=== PATIENT | male | born 1945 | race Caucasian/White ===

== ENCOUNTER 2020-06-07 15:32 | Outpatient (CLI) | payer MEDICARE, OTHER, SELFPAY ==
--- NOTE | 2020-06-07 15:42 | CT_ITS ---
WS: [id number] CT CHEST TECHNIQUE: Noncontrast CT of the chest with coronal and sagittal reformatted images. CLINICAL INFORMATION: HEMOPTYSIS, LESTER FUNGUS BALL, PULMONARY NODULES COMPARISON: CT chest 12 9,019 DLP: 894.[address] scans at [facility] use at least one of these dose optimization techniques: automat ed exposure control; mA and/or kV adjustment per patient size (includes targeted exams where dose is matched to clinical indication); or iterative reconstruction. FINDINGS: Again seen is the cavitary mass in left upper lobe today measuring 5.6 x 2.8 cm with internal soft ti ssue mass measuring 2.1 x 3.4 cm slightly increased from previous but otherwise not significantly wing nged. Associated pleural thickening. 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 Small right pleural effusion. No other significant changes. Mild chronic emphysematous changes. No mediastinal or hilar lymphadenop athy. Stable exophytic substernal thyroid nodule measuring 3.2 x 2.7 cm. Coronary calcification. Adrenal glands are normal. Cholecystectomy clips. A few small cysts in left hepatic lobe. Hypertrophi c changes thoracic spine. CT/CT chest wo con [id number] IMPRESSION: 1. 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 Overall the cavi tary mass measures 5.6 x 2.8 cm slightly increased in size from previous. Stabl e pleural thickening 2. No mediastinal or hilar lymphadenopathy. 3. Improved round atelectasis/fibrosis right lower lobe. 4. Substernal right thyroid nodule unchanged 5. Prior cholecystectomy. 6. Stable hepatic cysts.
== END 2020-06-07 15:33 | disposition home or self-care (01) ==
LOC: RADWPI 15:37
PROVIDERS: Family Provider Family Medicine; PCP Family Medicine; Visit Provider Internal Medicine Pulmonary Disease
DX: R04.2 Hemoptysis (principal); R91.1 Solitary pulmonary nodule; J98.11 Atelectasis; J84.10 Pulmonary fibrosis, unspecified; K76.89 Other specified diseases of liver
CPT/HCPCS: 71250

== ENCOUNTER 2020-07-06 20:14 | Inpatient (IN) | payer MEDICARE, OTHER, SELFPAY ==
[2020-07-06 20:14] VITALS: PULSE 96
[2020-07-06 20:21] VITALS: BP 134/63; PULSE 81; RESP 18; TEMP 36.9; O2SAT 98; BMI 29.8
--- NOTE | 2020-07-06 20:35 | XRR_ITS ---
PROCEDURE INFORMATION: Exam: XR Right Hip with Pelvis when Performed Exam date and time: 07/06/2020 9:11 PM Age: 74 years old Clinical indication: Hip pain; Right hip; Additional info: Fall, right hip pain. TECHNIQUE: Imaging protocol: XR Right hip with pelvis when performed. Views: 1 view. COMPARISON: CR Pelvis AP 1 or 2 views* [id number] 09/14/2017 12:52 PM FINDINGS: Bones/joints: Potential incomplete subcapital fracture right hip. Osteopenia. Soft tissues: Unremarkable. XR/XR hip RT 2-3V wo/w pel* [id number] IMPRESSION: Potential incomplete subcapital fracture right hip.
--- NOTE | 2020-07-06 21:38 | CTR_ITS ---
PROCEDURE INFORMATION: Exam: CT Pelvis Without Contrast; Skeletal Exam date and time: 07/06/2020 9:53 PM Age: 74 years old Clinical indication: Injury or trauma; Fall; Initial encounter; Blunt trauma (contusions or hematomas); Right; Hip; Additional info: Right hip pain following a fall TECHNIQUE: Imaging protocol: Computed tomography images of the pelvis without contrast. Exam focused on the skeletal structures. Radiation optimization: All CT scans at this facility use at least one of these dose optimization techniques: automated exposure control; mA and/or kV adjustment per patient size (includes targeted exams where dose is matched to clinical indication); or iterative reconstruction. COMPARISON: CR XR hip RT 2-3V wo/w pel* [id number] 07/06/2020 8:54 PM RADIATION DOSE METRICS: Total DLP (mGy-cm): 390.7 FINDINGS: Retroperitoneal space: Intraperitoneal and retroperitoneal structures within the field of view without visible evidence of active pathologic process. Bones/joints: Examination confirms the plain film findings of an incomplete subcapital stress fracture of the right hip. The fracture line extends through approximately 50% of the surgical neck beginning at the cephalad curve of the surgical neck extending 18 mm. No other visible fracture within the field of view. Chronic sacroiliitis. Degenerative disease degenerative disc disease of visualized lumbosacral spine. Small right hip joint effusion. Soft tissues: No visible significant soft tissue contusion or findings of soft tissue seroma/hematoma. CT/CT pelvis wo con [id number] IMPRESSION: 1. Examination confirms the plain film findings of an incomplete subcapital stress fracture of the right hip. 2. The fracture line extends through approximately 50% of the surgical neck beginning at the cephalad curve of the surgical neck extending 18 mm. 3. Small right hip joint effusion. Radiation Dose CTDIVOL = (mGy): DLP = 390.7 (mGy-cm)
--- NOTE | 2020-07-06 21:52 | ED_ITS ---
HPI - Extremity Problem General: Chief complaint: Extremity Injury, Lower Stated complaint: fall/ possible broken rt hip Time Seen by Provider: 07/06/20 20:21 Source: patient Mode of arrival: EMS Limitations: no limitations History of Present Illness: HPI Narrative: Patient was started on a medication for prostate issues and he took the first dose today. When he got up from a sitting position he got dizzy. He still proceeded to try to walk and he fell, landing on his right hip. He was initially able to get up but when he tried to bear weight on the right hip he had excruciating pain that became unbearable shortly afterwards. He has no other injuries. He has no other pain other than in the right hip region. He was given a dose of intravenous Dilaudid in the ambulance and he is currently pain-free MD Complaint: extremity pain Onset (ago): hour(s) (4) Pain Consistency: constant Location: right Severity scale (1-10): 10 Quality: sharp Radiation: none Relieving factors: other (IV pain medication given in the ambulance) Exacerbating factors: weight bearing Associated symptoms: Reports arthralgias; Deny chest pain, fever(s), myalgias, rash or short of breath Review of Systems General: Reports: 10 or more systems reviewed and unremarkable except in HPI and below Const: Denies: fever(s) Eyes: Denies: change in vision or blurry vision ENMT: Denies: throat pain, enlarged tonsils, odynophagia, hoarseness, mouth pain or swelling of lips/tongue Card: Denies: chest pain Resp: Denies: dyspnea, productive cough or non-productive cough GI: Denies: abdominal pain, nausea or vomiting : Denies: flank pain, dysuria, urinary frequency, urinary urgency or urinary hesitancy Musc: Reports: extremity pain and joint pain; Denies: neck pain, back pain or extremity swelling Skin/Breast: Denies: rash Neuro: Denies: headache(s), numbness in extremities or weakness in extremities Endo: Denies: polyuria, polydipsia or tired all the time Physical Exam Const: COMMON NORMALS: no acute distress, average body habitus, patient oriented x3, no limitations, healthy appearing, alert and well nourished HENMT: COMMON NORMALS: normocephalic, atraumatic and moist oral mucous membranes HEAD & SCALP: normocephalic and atraumatic Neck/C-Spine: COMMON NORMALS: full ROM, supple, no meningeal signs, no JVD and No carotid bruits Chest: COMMONS NORMALS: normal inspection of the chest and normal palpation of entire chest wall Resp: COMMON NORMALS: normal respiratory effort, No retractions, No use of accessory muscles, clear to auscultation bilaterally and percussion normal AUSCULTATION: clear to auscultation bilaterally PERCUSSION: percussion normal Cardio: COMMON NORMALS: no JVD, regular rate, regular rhythm, S1 normal heart sound present, S2 normal heart sound present, No gallops present (Cardio), No clicks present (Cardio), No murmurs present (Cardio), No rub (Cardio) and Peripheral pulses 2+ throughout RATE: regular rate RHYTHM: regular rhythm HEART SOUNDS: S1 normal heart sound present and S2 normal heart sound present PERIPHERAL PULSES: Peripheral pulses 2+ throughout GI: COMMON NORMALS: Normal to inspection, nondistended, normoactive bowel sounds present, Soft to palpation, non-tender, No hepatosplenomegaly present, no masses and no bruits PALPATION: Yes Soft to palpation and Yes No hepatosplenomegaly present Extremity: COMMON NORMALS: normal to inspection, full ROM, capillary refill normal, no calf tenderness and no pedal edema RIGHT LOWER EXTREMITY: Yes hip joint Right hip: Yes palpation (tender) and Yes ROM (reduced rom) Neuro: COMMON NORMALS: patient oriented x3 SENSORIUM/ORIENTATION: Yes alert MENINGEAL SIGNS: Yes no meningeal signs Skin: COMMON NORMALS: no rashes or lesions noted, no wounds, turgor normal, no jaundice, no petechiae and no mottling GENERAL SKIN EXAM: no rashes or lesions noted and turgor normal Course Consultations: Consultation #1: Discussed with Dr. Ladd, orthopedic surgeon. Patient should be admitted to the hospitalist service and he will take him to the OR tomorrow morning. Time: 23:18 Consultation #2: Discussed with Dr. Reid, hospitalist. He kindly accepted the patient to his service. Time: 23:22 Vital Signs: Vital signs: Vital Signs Temperature 98.5 F 07/06/20 20:21 Pulse Rate 86 07/06/20 21:56 Respiratory Rate 20 H 07/06/20 21:56 Blood Pressure 139/59 07/06/20 21:56 Pulse Oximetry 97 07/06/20 21:56 MDM - Extremity (Nontraumatic) MDM Narrative: Medical decision making narrative: 74-year-old male fell and sustained a right hip fracture. He is admitted to the hospital for an ORIF tomorrow. Medical Records: Attestation: I reviewed the patient's medical records. Lab Data: Attestation: I reviewed the patient's lab results. Labs: Lab Results 07/06/20 07/06/20 07/06/20 Range/Units 20:15 20:15 21:00 WBC 9.5 (4.0-10.0) 10^3/ uL RBC 3.67 L (4.1-5.3) 10^6/u L Hgb 11.2 L (11.7-16.6) g/dL Hct 34.1 L (42.0-52.0) % MCV 92.9 (80-94) fL MCH 30.5 (28.0-34.0) pg MCHC 32.8 (30.0-36.0) g/dL RDW 12.9 (12.1-15.1) % Plt Count 100 L (130-400) 10^3/c mm MPV 11.4 H (7.4-10.4) fL Neut % (Auto) 76.8 % Lymph % (Auto) 14.3 % [place] % (Auto) 7.2 % Eos % (Auto) 0.9 % Baso % (Auto) 0.3 % Neut # (Auto) 7.28 (1.8-7.7) 10^3/u L Lymph # (Auto) 1.4 (0.8-4.8) 10^3/u L [place] # (Auto) 0.7 (0.2-0.9) 10^3/u L Eos # (Auto) 0.1 (0.0-0.8) 10^3/u L Baso # (Auto) 0.0 (0.0-0.1) 10^3/u L Nucleated RBC % (a uto) 0 % Nucleated RBCs # 0.0 /100WBC Sodium 135 L (136-145) mmol/L Potassium 4.5 (3.5-5.1) mmol/L Chloride 100 (98-107) mmol/L Carbon Dioxide 21 L (22-29) mmol/L Anion Gap 18.5 (5-19) BUN 42 H (8-23) mg/dL Creatinine 3.3 H (0.7-1.2) mg/dL GFR Calculation Not Reportable Glucose 161 H (65-115) mg/dL Calculated Osmolal ity 281 L (285-295) mOsm/k g Calcium 9.8 (8.5-10.5) mg/dL Total Bilirubin 0.5 (0.15-1.2) mg/dL AST 15 (0-40) U/L ALT 11 (0-41) U/L Alkaline Phosphata se 80 (40-130) IU/L Total Protein 7.9 (6.6-8.7) g/dL Albumin 4.2 (3.5-5.2) g/dL Globulin 3.7 (1.3-4.6) g/dL Urine Color Yellow (Yellow) Urine Appearance Clear (CLEAR) Urine pH 5 (5-7) Ur Specific Gravit y 1.010 (1.005-1.030) Urine Protein Neg (Negative) Urine Glucose (UA) Norm (Normal) Urine Ketones Negative (Negative) Urine Blood Neg (Negative) Urine Nitrate Negative (Negative) Urine Bilirubin Neg (NEGATIVE) Urine Urobilinogen Norm (Negative) mg/dL Ur Leukocyte Rufina ase Negative (Negative) Imaging Data^: Xray Ortho: Radiologist's impression: [address] [address] XRay Report Signed Patient: Marianela Evangelista #: [id number] : 4At#:[id number] Age/Sex: 74 / MADM Date: 07/06/20 Loc: ERRoom/Bed: Attending Dr: Ordering Provider/Ordering MD: Neal Ulrich MD, [facility] [place] Date of Service: 07/06/20 Procedure(s): XR hip RT 2-3V wo/w pel* [id number] Accession Number(s): [id number] Report Number: [id number] PROCEDURE INFORMATION: Exam: XR Right Hip with Pelvis when Performed Exam date and time: 07/06/2020 9:11 PM Age: 74 years old Clinical indication: Hip pain; Right hip; Additional info: Fall, right hip pain. TECHNIQUE: Imaging protocol: XR Right hip with pelvis when performed. Views: 1 view. COMPARISON: CR Pelvis AP 1 or 2 views* [id number] 09/14/2017 12:52 PM FINDINGS: Bones/joints: Potential incomplete subcapital fracture right hip. Osteopenia. Soft tissues: Unremarkable. XR/XR hip RT 2-3V wo/w pel* [id number] IMPRESSION: Potential incomplete subcapital fracture right hip. Dictated By:Joao Sotelo Signed By:Maria Guadalupe Sotelo Date/Time:07/06/202146 DD/ 45 CT Abd/Pel: Radiologist's impression: [place] [address] CT Scan Report Signed Patient: Marianela Evangelista #: [id number] : 4Acct#:[id number] Age/Sex: 74 / MADM Date: 07/06/20 Loc: ERRoom/Bed: Attending Dr: Ordering Provider/Ordering MD: Neal Ulrich MD, [facility] [place] Date of Service: 07/06/20 Procedure(s): CT pelvis wo con [id number] Accession Number(s): [id number] Report Number: [id number] PROCEDURE INFORMATION: Exam: CT Pelvis Without Contrast; Skeletal Exam date and time: 07/06/2020 9:53 PM Age: 74 years old Clinical indication: Injury or trauma; Fall; Initial encounter; Blunt trauma (contusions or hematomas); Right; Hip; Additional info: Right hip pain following a fall TECHNIQUE: Imaging protocol: Computed tomography images of the pelvis without contrast. Exam focused on the skeletal structures. Radiation optimization: All CT scans at this facility use at least one of these dose optimization techniques: automated exposure control; mA and/or kV adjustment per patient size (includes targeted exams where dose is matched to clinical indication); or iterative reconstruction. COMPARISON: CR XR hip RT 2-3V wo/w pel* [id number] 07/06/2020 8:54 PM RADIATION DOSE METRICS: Total DLP (mGy-cm): 390.7 FINDINGS: Retroperitoneal space: Intraperitoneal and retroperitoneal structures within the field of view without visible evidence of active pathologic process. Bones/joints: Examination confirms the plain film findings of an incomplete subcapital stress fracture of the right hip. The fracture line extends through approximately 50% of the surgical neck beginning at the cephalad curve of the surgical neck extending 18 mm. No other visible fracture within the field of view. Chronic sacroiliitis. Degenerative disease degenerative disc disease of visualized lumbosacral spine. Small right hip joint effusion. Soft tissues: No visible significant soft tissue contusion or findings of soft tissue seroma/hematoma. CT/CT pelvis con [id number] IMPRESSION: 1. Examination confirms the plain film findings of an incomplete subcapital stress fracture of the right hip. 2. The fracture line extends through approximately 50% of the surgical neck beginning at the cephalad curve of the surgical neck extending 18 mm. 3. Small right hip joint effusion. Radiation Dose CTDIVOL = (mGy): DLP = 390.7 (mGy-cm) Dictated By:Joao Sotelo Signed By:Joao SoteloSignbettina Date/Time:07/06/202253 DD/ 52 Discharge Plan Discharge Patient Disposition: Admitted As Inpatient Clinical Impression: Fracture of hip Condition: Stable Referrals: Jt Rey Jr, MD [Primary Care Provider] - Coding Level of Care Code ED Pediatric Neuropsychologist for Flash Barth
[2020-07-06 21:56] VITALS: BP 139/59; PULSE 86; RESP 20; O2SAT 97
--- NOTE | 2020-07-06 21:57 | PC.NURSE ---
during pt rounding, pt states he is unable to urinate due to recent dx of enlarged prostate, requesting to be straight cath. vo obtained from Dr figueroa to drain bladder with catheter. 350cc of urine drained from straight cath
--- NOTE | 2020-07-06 23:15 | ECG_ITS ---
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 Measurements Intervals [place] Rate: 73 P: 48 TX: 166 QRS: 256 QRSD: 162 T: 65 QT: 418 QTc: 463 Interpretive Statements SINUS RHYTHM WITH SINUS ARRHYTHMIA RIGHT AXIS DEVIATION [QRS AXIS > 100] RIGHT BUNDLE BRANCH BLOCK [120+ ms QRS DURATION, UPRIGHT V1, 40+ ms S IN I/aVL/V4/V5/V6] Compared to ECG 10/05/2017 11:03:02 No significant changes Electronically Signed On 07-07-2020 13:18:27 CDT by Allison Taylor M.D. [email or web address]
--- NOTE | 2020-07-06 23:16 | XRR_ITS ---
PROCEDURE INFORMATION: Exam: XR Chest, 1 View Exam date and time: 07/07/2020 12:10 AM Age: 74 years old Clinical indication: Screening exam; Pre-operative exam; Other: Pre op hip; Prior surgery; Surgery date: 6+ months; Additional info: Preop TECHNIQUE: Imaging protocol: XR of the chest Views: 1 view. COMPARISON: CT chest wo con [id number] 06/07/2020 3:49 PM FINDINGS: Tubes, catheters and devices: Pacemaker. Lungs: Again note of a left upper lobe cavitary structure noted on the CT examination of 06/07/2020. Please review that report. No other evidence of active interstitial or alveolar airspace disease. Evidence of antecedent granulomatous disease to include calcified hilar complexes. Pleural space: Scant right pleural effusion. Heart/Mediastinum: Cardiac structures and configuration stable with arteriosclerosis. Bones/joints: Unremarkable. XR/XR chest 1V portable [id number] IMPRESSION: No visible evidence of acute cardiopulmonary process.
[2020-07-06 23:37] LABS: Add Urine Microscopic? NO
[2020-07-06 23:39] LABS: Basophils % 0.3 %; Eosinophils # 0.1 10^3/uL (0.0-0.8); Eosinophils % 0.9 %; Hematocrit 34.1 % (42.0-52.0); Hemoglobin 11.2 g/dL (11.7-16.6); Lymphocytes # 1.4 10^3/uL (0.8-4.8); Lymphocytes % 14.3 %; Mean Corpuscular HGB Conc 32.8 g/dL (30.0-36.0); Mean Corpuscular Hemoglobin 30.5 pg (28.0-34.0); Mean Corpuscular Volume 92.9 fL (80-94); Mean Platelet Volume 11.4 fL (7.4-10.4); Monocytes # 0.7 10^3/uL (0.2-0.9); Monocytes % 7.2 %; Neutrophils # 7.28 10^3/uL (1.8-7.7); Neutrophils % 76.8 %; Nucleated Red Blood Cells % 0 %; Platelet Count 100 10^3/cmm (130-400); Red Blood Count 3.67 10^6/uL (4.1-5.3); Red Cell Distribution Width 12.9 % (12.1-15.1); White Blood Count 9.5 10^3/uL (4.0-10.0)
[2020-07-06 23:41] LABS: Bilirubin Urine Neg (NEGATIVE); Blood Urine Neg (Negative); Glucose Urine UA Norm (Normal); Ketones Urine Negative (Negative); Leukocyte Esterase Urine Negative (Negative); Nitrate Urine Negative (Negative); Protein Urine Neg (Negative); Urine Appearance Clear (CLEAR); Urine Color Yellow (Yellow); Urobilinogen Urine Norm (Negative); pH Urine 5 (5-7)
--- NOTE | 2020-07-06 23:49 | P.HP_ITS ---
Providers/Chief Complaint Primary Care Provider: Jt Rey Jr, MD Chief Complaint: fall/ possible broken rt hip History of Present Illness Timoteo Evangelista is a 74 year old male who presents to the emergency department with history of a fall around 2:30 PM on July 06. He reports he was lightheaded when he got up, and fell. He wonders if it could be the new medication that he started, Flomax for some prostate issues. However, it was 12 hours after taking the Flomax that the fall occurred. He denies any loss of consciousness, or any other injuries other than to his right hip. He has having some right groin pain, radiating to his knee. He denies any headache, nausea or vomiting. He denies any illness recently and has not been sick with a cough. He reports no personal history of COVID, or contact with anybody with COVID. He denies any difficulty with anesthesia, or bleeding disorders. 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 Garcia and infectious disease physician. He recently underwent a bronchoscopy for this and is awaiting his biopsy results. He had a COVID screening test less than 1 week ago that was negative. Review of Systems General: Reports: 10 or more systems reviewed and unremarkable except in HPI and below Const: Denies: fever(s) or chills Eyes: Denies: change in vision ENMT: Denies: throat pain Card: Denies: chest pain Resp: Denies: dyspnea GI: Denies: abdominal pain : Denies: flank pain Musc: Reports: extremity pain; Denies: neck pain Skin/Breast: Denies: rash Neuro: Denies: headache(s) Psych: Denies: anxiety Endo: Denies: polyuria [place]/Lymph: Denies: easy bruising All/Imm: Denies: urticaria Medications/Allergies Allergies Allergy/AdvReac Type Severity Reaction Status Date / Time Penicillins Allergy Intermediate ALGY-Hives Verified 07/06/20 20:31 fentanyl Allergy ADR-Agitate Verified 07/06/20 20:31 d sulfamethoxazole Allergy ALGY-Hives Verified 07/06/20 20:31 [From Bactrim] trimethoprim [From Bactrim] Allergy ALGY-Hives Verified 07/06/20 20:31 PFSH Acute PFSH: Medical History (Updated 07/07/20 @ 01:01 by Xaiver Reid MD) Chronic kidney disease, stage III (moderate) Depression History of trauma Secondary to crush injury by horse where he required pacemaker, appendectomy, colostomy, dialysis 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 Family History (Updated 07/07/20 @ 00:56 by Xavier Reid MD) Other CAD (coronary artery disease) Social History (Updated 07/07/20 @ 00:56 by Xavier Reid MD) Smoking and tobacco status: former smoker Alcohol intake: never Vitals/I&O/Wt Last Vital Signs Temp 98.5 F 07/06/20 20:21 Pulse 86 07/06/20 21:56 Resp 20 H 07/06/20 21:56 BP 139/59 07/06/20 21:56 Pulse Ox 97 07/06/20 21:56 Weight last 48 hrs Weight 99.79 kg Physical Exam Narrative: EXAM NARRATIVE: General exam is a white male, no apparent distress, conversant and pleasant HEENT: Pupils equally round. Oropharynx clear. Neck is supple no lymphadenopathy or thyromegaly Cardiovascular regular rate and rhythm without murmur, no S3 or S4 Lungs clear no wheezing or crackles Abdomen is soft nontender with positive bowel sounds. No obvious organomegaly was deferred Extremities no cyanosis clubbing or edema. Cap refill brisk. Pain with any movement of his right lower extremity. Skin no rash Neuro no focal deficits. Data : 07/06/20 20:15 07/06/20 20:15 Other data: LFTs normal. Urinalysis negative Pelvis CT fracture, 50% of the surgical neck of the right hip EKG demonstrates sinus rhythm, left axis deviation, right bundle branch block Chest x-ray left upper lobe mass, pacemaker A&P Assessment and plan (1) Fracture of hip: Pain control Bed rest Place [facility] Orthopedic consultation for definitive treatment Status: Acute Qualifiers: Encounter type: initial encounter Fracture type: closed Laterality: right Qualified Code(s): S72.001A - Fracture of unspecified part of neck of right femur, initial encounter for closed fracture (2) Lung mass: He has been evaluated by pulmonary. Cultures are pending according to patient. 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 Request records Status: Inactive (3) Thrombocytopenia: Chronicity unknown although platelet count was 85,000 October 2018. Repeat tomorrow Status: Acute (4) Dizziness: Patient reports this may be secondary to Flomax. However, he often gets dizzy upon rising quickly anyway. Telemetry Hold Flomax Status: Acute (5) Hyperglycemia: Check hemoglobin A1c Status: Acute Additional A&P Information Mild anemia. Recheck. Chronic kidney disease at least stage III. Hydrate. Avoid renal toxic medication. Repeat creatinine in the morning. History of depression. Continue Cymbalta. History of BPH. Holding Flomax currently. History of trauma with multiple procedures following this including pacemaker, dialysis for short while. Full code SCDs for DVT prophylaxis, surgery anticipated No direct contraindications to hip fracture repair. Attestations Medical Necessity Statement*: Will need greater than 2 midnight stay for definitive care and treatment of hip fracture. Time Spent in Patient Care: Greater than 35 minutes Coding Level of Care Code Acute Audit Machine Operator for Flash Barth Diagnoses Fracture of hip S72.001A Encounter type: initial encounter Fracture type: closed Laterality: right Lung mass R91.8 Thrombocytopenia D69.6 Dizziness R42 Hyperglycemia R73.9
[2020-07-06 23:53] LABS: Alanine Aminotransferase 11 U/L (0-41); Albumin Level 4.2 g/dL (3.5-5.2); Alkaline Phosphatase 80 IU/L (40-130); Anion Gap 18.5 (5-19); Aspartate Amino Transferase 15 U/L (0-40); Blood Urea Nitrogen 42 mg/dL (8-23); Calcium 9.8 mg/dL (8.5-10.5); Carbon Dioxide 21 mmol/L (22-29); Chloride 100 mmol/L (98-107); Globulin 3.7 g/dL (1.3-4.6); Glucose 161 mg/dL (65-115); Osmolality Calculated 281 mOsm/kg (285-295); Potassium 4.5 mmol/L (3.5-5.1); Sodium 135 mmol/L (136-145); Total Bilirubin 0.5 mg/dL (0.15-1.2); Total Protein 7.9 g/dL (6.6-8.7)
[2020-07-07] VITALS (12 sets, daily range): BP systolic 112–147; BP diastolic 64–80; PULSE 72–86; RESP 16–22; TEMP 36.4–36.9; O2SAT 96–99; BMI 29.8
[2020-07-07] MEDS: sodium chloride 0.9% 1,000 ML 75 ML IV ×2 (00:45→08:13)
[2020-07-07] MEDS: ondansetron 2 mg/ML SDV 2 mL 4 MG IVP (00:50)
[2020-07-07] MEDS: morphine 4 mg/mL SDV 1 mL 2 MG IVP ×5 (00:58→20:40)
[2020-07-07 01:23] LABS: Estmated Average Glucose 108; Hemoglobin A1C 5.4 % (4.0-6.0)
--- NOTE | 2020-07-07 03:12 | PC.NURSE ---
during 0100 rounding, pt states pain has returned to 4/10 without movement. Orders for pain meds obtained
[2020-07-07 05:37] LABS: Basophils % 0.3 %; Eosinophils # 0.1 10^3/uL (0.0-0.8); Eosinophils % 1.8 %; Hematocrit 30.2 % (42.0-52.0); Hemoglobin 9.8 g/dL (11.7-16.6); Lymphocytes # 1.2 10^3/uL (0.8-4.8); Lymphocytes % 20.2 %; Mean Corpuscular HGB Conc 32.5 g/dL (30.0-36.0); Mean Corpuscular Hemoglobin 30.6 pg (28.0-34.0); Mean Corpuscular Volume 94.4 fL (80-94); Mean Platelet Volume 9.6 fL (7.4-10.4); Monocytes # 0.6 10^3/uL (0.2-0.9); Monocytes % 9.6 %; Neutrophils # 4.16 10^3/uL (1.8-7.7); Neutrophils % 67.6 %; Nucleated Red Blood Cells % 0 %; Platelet Count 109 10^3/cmm (130-400); White Blood Count 6.2 10^3/uL (4.0-10.0)
[2020-07-07 05:56] LABS: Anion Gap 12.5 (5-19); Blood Urea Nitrogen 40 mg/dL (8-23); Calcium 9.1 mg/dL (8.5-10.5); Carbon Dioxide 24 mmol/L (22-29); Chloride 104 mmol/L (98-107); Glucose 144 mg/dL (65-115); Osmolality Calculated 282 mOsm/kg (285-295); Potassium 4.5 mmol/L (3.5-5.1); Sodium 136 mmol/L (136-145)
--- NOTE | 2020-07-07 08:00 | PC.NURSE ---
reported to Dr. Dewitt that pt ran 5-8 sec SVT. No new orders at this time.
--- NOTE | 2020-07-07 08:34 | PM.CONSULT ---
Providers/Reason For Consult Consulting Physican/Specialty*: Avila Ladd MD; orthopedic surgery Reason for Consult*: Right hip pain Attending Physician: Renate Mar MD Primary Care Provider: Jt Rey Jr, MD History of Present Illness History of Present Illness Timoteo Evangelista is a 74 year old male who presents with a history of a right pain that occurred after a fall yesterday afternoon. Patient alleges that he was light headed as he got up from a chair. He describes falling on his right hip with immediate pain. He describes pain in the groin rating down to his knee. He has been unable to bear weight. He is admitted to medicine for evaluation of the syncopal event and orthopedics is asked to consult for his hip. He denies any previous problems with his right hip. He describes history approximately 5 years ago of a crushing injury to his abdomen and pelvis when a horse landed on top of them. He denies any orthopedic injuries to his hips at that time but he underwent an extensive exploratory laparotomy and states he was for several years on dialysis as a result Meds/Allergies Home Medications and Allergies Home Medications Medication Instructions Recorded Confirmed Last Taken Type fluticasone propion-salmeterol INHALATION 07/07/20 07/06/20 12:00 History [Advair HFA] Allergies Allergy/AdvReac Type Severity Reaction Status Date / Time Penicillins Allergy Intermediate ALGY-Hives Verified 07/06/20 20:31 fentanyl Allergy ADR-Agitate Verified 07/06/20 20:31 d sulfamethoxazole Allergy ALGY-Hives Verified 07/06/20 20:31 [From Bactrim] trimethoprim [From Bactrim] Allergy ALGY-Hives Verified 07/06/20 20:31 Current Medications Current Medications Generic Name Dose Route Start Last Admin Trade Name Freq PRN Reason Stop Dose Admin Sodium Chloride 1,000 mls @ 75 mls/hr 07/06/20 23:45 07/07/20 08:13 Sodium Chloride 0.9% IV 75 mls/hr .[id number] ALEXUS Administration Morphine Sulfate 2 mg 07/06/20 23:45 07/07/20 05:11 Morphine IVP 2 mg Q4H PRN Administration PAIN Ondansetron HCl 4 mg 07/06/20 23:46 07/07/20 00:50 Zofran IVP 4 mg Q6H PRN Administration vomiting, or N/V if npo PFSH Acute PFSH: Medical History (Updated 07/07/20 @ 01:01 by Xavier Reid MD) Chronic kidney disease, stage III (moderate) Depression History of trauma Secondary to crush injury by horse where he required pacemaker, appendectomy, colostomy, dialysis 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 Family History (Updated 07/07/20 @ 00:56 by Xavier Reid MD) Other CAD (coronary artery disease) Social History (Updated 07/07/20 @ 00:56 by Xavier Reid MD) Smoking and tobacco status: former smoker Alcohol intake: never Vitals/I&O/Wt Last Vital Signs Temp 97.6 F 07/07/20 07:31 Pulse 84 07/07/20 07:40 Resp 16 07/07/20 07:40 BP 147/79 07/07/20 07:40 Pulse Ox 96 07/07/20 07:40 07/06/20 07/07/20 07/07/20 22:59 06:59 14:59 Intake Total 0 / 0 560 / 560 Output Total 400 / 400 Balance -400 / -400 560 / 560 Weight last 48 hrs Weight 220 lb Weight 220 lb Physical Exam Narrative: EXAM NARRATIVE: Patient is a pleasant male supine in bed in no apparent distress. He has exquisite pain with motion of his right hip there is no obvious deformity. He has a palpable right dorsalis pedis pulse. Will flex and extend his toes and his ankle without any motor deficits. His right lower extremity sensation is intact light touch. Urinary Catheter Management^: Aguilar: Cath Placed During This Visit: yes Reason for Continuing Indwelling Catheter: Accurate Measurement of Urinary Output in Critically Ill Patients Urinary Catheter Date of Insertion: 07/07/20 Urinary Catheter Time of Insertion: 02:00 Data Imaging^: Xray Ortho: I personally reviewed and interpreted this imaging study as follows: (AP and lateral radiographs of the right hip) My impression: There appears to be an irregularity in the superior lateral cortex of the femoral neck and some apparent cystic change. I certainly cannot see complete extension into the inferior femoral neck. An acute component of fracture cannot be completely excluded Radiologist's impression: The radiologist comments on a potential incomplete stress fracture of the femoral neck Other CT: My impression: There appears to be some lucency and cystic change in the superior femoral neck. The pattern is not typical of an acute fracture and I would agree it would be consistent with some type of chronic process. Possibly a stress fracture. This could be an atypical presentation of acute fracture. There really is not a large effusion of the hip on that CT scan to suggest an acute process Radiologist's impression: The radiologist reviews the CT scan and see the incomplete subcapital stress fracture of the right hip. She may comment on extension to approximately 50% of the surgical neck. A&P Assessment and plan (1) Fracture of hip: There appears to be some process within the hip. It is difficult for me to precisely determine fracture anatomy and plan surgery. I am not certain if the changes in the femoral neck are chronic in nature. Certainly the lack of effusion might suggest that. This very well could represent some other fracture pattern other than the femoral neck. I think our best choice at this point would proceed with MR imaging to better define the fracture pattern or I can properly plan stabilization if warranted. Allow the patient to eat. Will obtain an MRI of the hip. 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
--- NOTE | 2020-07-07 09:08 | PC.NURSE ---
Pt again going into SVT, shows no signs. Dr. Dewitt notified. awaiting results.
[2020-07-07] MEDS: duloxetine 30 mg Capsule PO (09:14)
--- NOTE | 2020-07-07 10:57 | P.PN_ITS ---
Subjective Subjective: Interval history: Chart reviewed, noted ortho evaluation, MRI ordered. Vital signs stable, has Aguilar catheter in place, had 400 mL urine output overnight, paced rhythm on ECG though looks almost like V.tach on telemetry, asymptomatic. Unable to get MRI because of pacemaker though pacemaker card provided by shows compatibility. updated at bedside. No surgical intervention for now per Dr. Ladd. Medications: Reviewed: Yes Medication Review Details: Active Medications Generic Name Dose Route Start Last Admin Trade Name Freq PRN Reason Stop Dose Admin Acetaminophen 650 mg 07/06/20 23:46 Tylenol PO Q6H PRN Mild/Mod Pain Or Temp >/= 101 Duloxetine HCl 30 mg 07/07/20 09:00 07/07/20 09:14 Cymbalta PO 30 mg DAILY ALEXUS Administration Sodium Chloride 1,000 mls @ 75 ml s/hr 07/06/20 23:45 07/07/20 08:13 Sodium Chloride 0.9% IV 75 mls/hr .[id number] ALEXUS Administration Morphine Sulfate 2 mg 07/06/20 23:45 07/07/20 09:14 Morphine IVP 2 mg Q4H PRN Administration PAIN Ondansetron HCl 4 mg 07/06/20 23:46 07/07/20 00:50 Zofran IVP 4 mg Q6H PRN Administration vomiting, or N/V if npo Penicillins Allergy (Intermediate, Verified 07/06/20 20:31) ALGY-Hives fentanyl Allergy (Verified 07/06/20 20:31) ADR-Agitated sulfamethoxazole [From Bactrim] Allergy (Verified 07/06/20 20:31) ALGY-Hives trimethoprim [From Bactrim] Allergy (Verified 07/06/20 20:31) ALGY-Hives Vitals/I&O/Wt Last Vital Signs Temp 97.6 F 07/07/20 07:31 Pulse 84 07/07/20 07:40 Resp 22 H 07/07/20 09:14 BP 147/79 07/07/20 07:40 Pulse Ox 96 07/07/20 07:40 07/06/20 07/07/20 07/07/20 22:59 06:59 14:59 Intake Total 0 / 0 920 / 920 Output Total 400 / 400 Balance -400 / -400 920 / 920 Weight last 48 hrs Weight 99.79 kg Weight 99.79 kg Physical Exam Const: COMMON NORMALS: no acute distress, patient oriented x3 and alert GENERAL APPEARANCE: cooperative and comfortable ORIENTATION/CONSCIOUSNESS: Yes awake OTHER: -very pleasant HENMT: COMMON NORMALS: normocephalic, atraumatic, hearing grossly normal bilaterally and moist oral mucous membranes HEAD & SCALP: normocephalic and atraumatic Eye: COMMON NORMALS: Equal, round and reactive pupils present, EOMs intact bilaterally and conjunctivae normal CONJUNCTIVA: Yes conjunctivae normal PUPIL: Yes Equal, round and reactive pupils present Neck/C-Spine: COMMON NORMALS: full ROM GENERAL: Yes normal visual inspection and Yes trachea midline Chest: CHEST: Yes Pacemaker present Resp: COMMON NORMALS: normal respiratory effort, No retractions, No use of accessory muscles and clear to auscultation bilaterally EFFORT & INSPECTION: Yes able to speak in complete sentences, Yes symmetric chest movement and No tachypneic AUSCULTATION: clear to auscultation bilaterally OTHER: -on RA Cardio: COMMON NORMALS: regular rate, regular rhythm, S1 normal heart sound present, S2 normal heart sound present and No murmurs present (Cardio) RATE: regular rate RHYTHM: regular rhythm HEART SOUNDS: S1 normal heart sound present and S2 normal heart sound present GI: COMMON NORMALS: Normal to inspection, nondistended, normoactive bowel sounds present, Soft to palpation and non-tender PALPATION: Yes Soft to palpation : BLADDER/KIDNEY EXAM: Yes catheter in place Extremity: COMMON NORMALS: normal to inspection, full ROM and no clubbing, cyanosis or edema; negative for no pedal edema Neuro: COMMON NORMALS: patient oriented x3, moves all extremities, no focal motor deficits and no sensory deficits noted SENSORIUM/ORIENTATION: Yes alert Psych: COMMON NORMALS: mental status grossly normal, Normal thought process present, cooperative, normal affect and speech normal SPEECH: Yes normal speech THOUGHT PROCESS: Normal thought process present Skin: COMMON NORMALS: no rashes or lesions noted, no jaundice, no petechiae and no mottling GENERAL SKIN EXAM: no rashes or lesions noted Urinary Catheter Management^: Aguilar: Cath Placed During This Visit: yes Reason for Continuing Indwelling Catheter: Accurate Measurement of Urinary Output in Critically Ill Patients Urinary Catheter Date of Insertion: 07/07/20 Urinary Catheter Time of Insertion: 02:00 Data : 07/07/20 04:53 07/07/20 04:53 A&P Assessment and plan (1) Fracture of hip: -noted to have R hip fracture though unclear acuity, extent. Secondary to fall precipitated by dizziness -MRI ordered for better evaluation though unable to perform this due to pacemaker incompatibility with monitoring equipement, card information in paper chart -Ortho consult by Dr. Ladd appreciated -pain control as needed -fall precautions -has Aguilar catheter in place -VSS, continue to monitor -PT evaluation in AM Status: Acute Qualifiers: Encounter type: initial encounter Fracture type: closed Laterality: ri t Qualified Code(s): S72.001A - Fracture of unspecified part of neck of right femur, initial encounter for closed fracture (2) Hyperglycemia: -A1c-5.4 -no hx of DM Status: Acute (3) Thrombocytopenia: -stable platelet count, continue to trend -monitor for bleeding -unclear etiology though has been noted to be low before Status: Acute (4) Dizziness: -recently started on Flomax shortly after which he had increased lightheadedness and fall; on hold -fall precautions -unable to check orthostatics due to inability to weight bear -telemetry monitoring -has pacemaker; recently interrogated in 06/2020, no abnormalities noted Status: Acute (5) Chronic kidney disease, stage III (moderate): -CKD stage 3, baseline Cr 2-3 -continue to monitor renal function, avoid nephrotoxins, renally dose meds -did require dialysis secondary to trauma with extensive injuries and resulting renal failure but has not required this in some time (2 yrs) Status: Chronic (6) History of trauma: -fell from a horse about 4 yrs ago with extensive injuries Status: Chronic (7) Lung mass: -records of ongoing workup requested Status: Chronic Additional A&P Information -Depression -BPH; Flomax on hold -Chronic normocytic anemia, baseline Hg is around 10; continue to monitor H/H -DVT ppx with SCDs, hold AC due to potential surgery -Dispo: home -Code status: FULL code Attestations Medical Necessity Statement*: Patient requires hospitalization for continued management of hip fracture pending additional imaging and definitive treatment. Time Spent in Patient Care: 16 - 35 minutes (>than 50% of time spent in counselling and/or direct pt care on unit) . 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
--- NOTE | 2020-07-07 11:27 | ECG_ITS ---
[facility] Test Date: 2020-07-07 Pat Name: Timoteo Evangelista Department: Room: 254 Gender: Male Services Engineer: : 1945 Requested By: Renate Mar Order Number: [id number] Humphreys MD: Allison Taylor M.D. Measurements Intervals [place] Rate: 75 P: -80 ME: 149 QRS: -61 QRSD: 160 T: 57 QT: 413 QTc: 462 Interpretive Statements ELECTRONIC ATRIAL PACEMAKER ELECTRONIC VENTRICULAR PACEMAKER ABNORMAL RHYTHM ECG Compared to ECG 07/07/2020 00:46:47 Sinus rhythm no longer present Sinus arrhythmia no longer present Right-axis deviation no longer present Right bundle-branch block no longer present Electronically Signed On 07-07-2020 13:16:51 CDT by Allison Taylor M.D. [email or web address].Drug Response Dx/store/[id number] [email or web address]
--- NOTE | 2020-07-07 11:27 | USCV_ITS ---
Timoteo Evangelista Age: 74 Gender: M : 1945 Exam Date: 07/07/2020 13:00 Ordering Phys: Renate Mar MD Technologist: Juany Cullen Exam Location: [facility] [place] Indication: Syncope BP: 117 / 66 HR: Rhythm: Sinus Technical Quality: Technically difficult study MEASUREMENTS (Male / Female) Normal Values 2D ECHO LV Diastolic Diameter PLAX 4.6 cm 4.2 - 5.9 / 3.9 - 5.3 cm LV Systolic Diameter PLAX 2.7 cm LV Chamber Size 3.7 cm IVS Diastolic Thickness 0.9 cm 0.6 - 1.0 / 0.6 - 0.9 cm IVS Systolic Thickness 1.0 cm LVPW Diastolic Thickness 0.9 cm 0.6 - 1.0 / 0.6 - 0.9 cm LVPW Systolic Thickness 1.1 cm RV Chamber Size 1.8 cm LVOT Diameter 1.8 cm LV Ejection Fraction 2D Teich 71.8 % LA Width 2.5 cm LA Height 4.7 cm RA Width 2.8 cm RA Height 3.9 cm M-MODE LV Diastolic Diameter MM 4.5 cm 4.2 - 5.9 / 3.9 - 5.3 cm LV Systolic Diameter MM 2.8 cm LV Ejection Fraction MM Teich 67.1 % IVS Diastolic Thickness MM 1.6 cm 0.6 - 1.0 / 0.6 - 0.9 cm IVS Systolic Thickness MM 2.0 cm LVPW Diastolic Thickness MM 1.2 cm 0.6 - 1.0 / 0.6 - 0.9 cm LVPW Systolic Thickness MM 1.4 cm DOPPLER AV Peak Velocity 161.0 cm/s LVOT Peak Velocity 103.0 cm/s AV Area Cont Eq vti 1.2 cm squared AV Area Cont Eq pk 1.6 cm squared MV Area PHT 4.2 cm squared Mitral E to A Ratio 0.9 MV E' Velocity 79.0 cm/s TR Peak Velocity 178.0 cm/s TR Peak Gradient 12.7 mmHg TV Peak E Velocity 47.0 cm/s Right Atrial Pressure 3.0 mmHg Pulmonary Artery Systolic Pressu 15.7 mmHg FINDINGS Left Ventricle Normal left ventricular size and systolic function. Left ventricular ejection fraction is estimated at 60 %. Although no diagnostic regional wall abnormality could be identified, this possibilty cannot be completely excluded. Right Ventricle Right ventricle not well visualized. Probably normal right ventricular size and systolic function. Right ventricular systolic pressure 15.7 mmHg. Right Atrium Normal right atrial size. Left Atrium Left atrium not well visualized. Mitral Valve Thickened mitral valve. Aortic Valve Aortic valve not well visualized. Thickened trileaflet aortic valve. Mild aortic valve stenosis, mean gradient 5 mmHg, VICTORINA 1.2 cm squared. No aortic valve regurgitation. Tricuspid Valve Structurally normal tricuspid valve. Pulmonic Valve Pulmonic valve not well visualized. Pericardium No pericardial effusion. Aorta Aorta not well visualized. CONCLUSIONS 1. Normal left ventricular size and systolic function. Left ventricular ejection fraction is estimated at 60 %. Although no diagnostic regional wall abnormality could be identified, this possibilty cannot be completely excluded. 2. Probably normal right ventricular size and systolic function. 3. Mild aortic valve stenosis, mean gradient 5 mmHg, VICTORINA 1.2 cm squared. 4. Normal pulmonary artery pressure. Allison Taylor MD (Electronically Signed) Final Date: 07 July 2020 18:35 S
[2020-07-07 12:53] LABS: Magnesium 2.1 mg/dL (1.7-2.3)
--- NOTE | 2020-07-07 14:32 | PC.CHAP ---
Pastoral Care Encounter/Spiritual Assessment Type of Contact [] Declined region manager visit [] Patient/Family/Request visit [] Outpatient visit [] Follow-up visit [] Physician referral [] Code/Alert [xx] Routine visit [] Staff referral [] Actively dying [] Patient sleeping [] Family support [] [] Out of room [] Palliative care [] [] Receiving care in room [] Pre-surgical visit [] Trauma [] Long length of stay [] ICU visit [] Other: Relational/Emotional Strength [xx] Patient feels connected with others/family/visitors/staff [] Distress [] Loneliness/isolation [] Abandonment Spirituality of Patient [xx] Person of Marleni [] Attends Lutheran of their [place] [xx] Believes in Prayer [] Reads Bible or Hindu materials [] There are Spiritual issues to be addressed [employer] Interventions [xx] Prayer [xx] Active listening [xx] Non-anxious presence [] Spiritual/emotional support [] Crisis/trauma care [] Spiritual counseling [] Bereavement support [] Provided bereavement packet [] Provided Bible/devotional materials [] Provided toy/stuffed animal, coloring book to patient or family member [] Provided Communion [] Anointing/[place] [] Salvation [xx] Completed spiritual assessment [] Other: Impact on Illness or Injury [] Angry [] Fearful [] Anxious [] Often cries [] Exhaustion [] Unable to work [] Unable to attend pentecostalism [] Unable to walk/stand [] Unable to read [] Unable to drive [] Unable to eat/drink [] Unable to sleep [] Unable to be with family [] Patient intubated [] Other: Summary: Pt expressed so much yung and gratitude for the Lord and shared his testimony. He has a strong support system in friends and his spouse. Time spent with patient: 30 mins
[2020-07-08] VITALS (7 sets, daily range): BP systolic 123–141; BP diastolic 66–75; PULSE 69–84; RESP 13–22; TEMP 36.6–37.1; O2SAT 94–99
[2020-07-08] MEDS: sodium chloride 0.9% 1,000 ML 75 ML IV ×2 (03:03→16:19)
[2020-07-08 06:17] LABS: Basophils % 0.5 %; Eosinophils # 0.2 10^3/uL (0.0-0.8); Eosinophils % 3.7 %; Hematocrit 30.6 % (42.0-52.0); Hemoglobin 9.7 g/dL (11.7-16.6); Lymphocytes # 1.3 10^3/uL (0.8-4.8); Lymphocytes % 21.6 %; Mean Corpuscular HGB Conc 31.7 g/dL (30.0-36.0); Mean Corpuscular Hemoglobin 29.8 pg (28.0-34.0); Mean Corpuscular Volume 93.9 fL (80-94); Mean Platelet Volume 10.4 fL (7.4-10.4); Monocytes # 0.5 10^3/uL (0.2-0.9); Monocytes % 7.9 %; Neutrophils # 4.08 10^3/uL (1.8-7.7); Neutrophils % 65.7 %; Nucleated Red Blood Cells % 0 %; Platelet Count 104 10^3/cmm (130-400); Red Blood Count 3.26 10^6/uL (4.1-5.3); White Blood Count 6.2 10^3/uL (4.0-10.0)
[2020-07-08 06:49] LABS: Anion Gap 11.6 (5-19); Blood Urea Nitrogen 35 mg/dL (8-23); Carbon Dioxide 23 mmol/L (22-29); Chloride 107 mmol/L (98-107); Glucose 122 mg/dL (65-115); Osmolality Calculated 283 mOsm/kg (285-295); Potassium 4.6 mmol/L (3.5-5.1); Sodium 137 mmol/L (136-145)
--- NOTE | 2020-07-08 07:45 | XRR_ITS ---
PROCEDURE INFORMATION: Exam: XR Right Hip with Pelvis when Performed Exam date and time: 07/08/2020 7:46 AM Age: 74 years old Clinical indication: Pain and injury or trauma; Initial encounter; Blunt trauma (contusions or hematomas); Injury date: 07/06/20; Injury details: Fall Thursday, right hip pain; Additional info: Rule out fracture TECHNIQUE: Imaging protocol: XR Right hip with pelvis when performed. Views: 1 view. COMPARISON: 1. CT pelvis wo con [id number] 07/06/2020 10:16 PM 2. CR - XR hip RT 2-3V wo/w pel* [id number] 07/06/2020 8:54:52 PM FINDINGS: Bones/joints: No change in what appears to be an incomplete subcapital femoral neck fracture. No dislocation. Soft tissues: No acute soft tissue abnormality. XR/XR hip RT 2-3V wo/w pel* [id number] IMPRESSION: No change in what appears to be an incomplete subcapital right femoral neck fracture.
[2020-07-08] MEDS: duloxetine 30 mg Capsule PO (09:22)
[2020-07-08] MEDS: morphine 4 mg/mL SDV 1 mL 2 MG IVP (09:24)
--- NOTE | 2020-07-08 13:58 | P.PN_ITS ---
Subjective Subjective: Interval history: PT evaluation today, repeat x-rays unchanged, had 975 mL urine output overnight, hemodynamically stable, afebrile, on RA. Pain control has been an issue, will add additional oral analgesics. Has had a good day, did well with PT and is able to ambulate to/from the bathroom with walker with decreasing discomfort. updated at bedside. Pain controlled better with oral analgesics. Medications: Reviewed: Yes Medication Review Details: Active Medications Generic Name Dose Route Start Last Admin Trade Name Freq PRN Reason Stop Dose Admin Acetaminophen 650 mg 07/06/20 23:46 Tylenol PO Q6H PRN Mild/Mod Pain Or Temp >/= 101 Duloxetine HCl 30 mg 07/07/20 09:00 07/08/20 09:22 Cymbalta PO 30 mg DAILY ALEXUS Administration Sodium Chloride 1,000 mls @ 75 ml s/hr 07/06/20 23:45 07/08/20 03:03 Sodium Chloride 0.9% IV 75 mls/hr .[id number] ALEXUS Administration Morphine Sulfate 2 mg 07/06/20 23:45 07/08/20 09:24 Morphine IVP 2 mg Q4H PRN Administration PAIN Ondansetron HCl 4 mg 07/06/20 23:46 07/07/20 00:50 Zofran IVP 4 mg Q6H PRN Administration vomiting, or N/V if npo Penicillins Allergy (Intermediate, Verified 07/06/20 20:31) ALGY-Hives fentanyl Allergy (Verified 07/06/20 20:31) ADR-Agitated sulfamethoxazole [From Bactrim] Allergy (Verified 07/06/20 20:31) ALGY-Hives trimethoprim [From Bactrim] Allergy (Verified 07/06/20 20:31) ALGY-Hives Vitals/I&O/Wt Last Vital Signs Temp 98.4 F 07/08/20 11:31 Pulse 76 07/08/20 11:31 Resp 18 07/08/20 11:31 BP 128/68 07/08/20 11:31 Pulse Ox 97 07/08/20 11:31 07/07/20 07/08/20 07/08/20 22:59 06:59 14:59 Intake Total 1435 / 2575 600 / 600 Output Total 1725 / 1725 150 / 1875 625 / 625 Balance -290 / 850 -150 / 700 -25 / -25 Weight last 48 hrs Weight 79.974 kg Weight 99.79 kg Weight 99.79 kg Physical Exam Const: COMMON NORMALS: no acute distress, patient oriented x3 and alert GENERAL APPEARANCE: cooperative and comfortable ORIENTATION/CONSCIOUSNESS: Yes awake OTHER: -very pleasant HENMT: COMMON NORMALS: normocephalic, atraumatic, hearing grossly normal b ilaterally and moist oral mucous membranes HEAD & SCALP: normocephalic and atraumatic Eye: COMMON NORMALS: Equal, round and reactive pupils present, EOMs intact bilaterally and conjunctivae normal CONJUNCTIVA: Yes conjunctivae normal PUPIL: Yes Equal, round and reactive pupils present Neck/C-Spine: COMMON NORMALS: full ROM GENERAL: Yes normal visual inspection and Yes trachea midline Chest: CHEST: Yes Pacemaker present Resp: COMMON NORMALS: normal respiratory effort, No retractions, No use of accessory muscles and clear to auscultation bilaterally EFFORT & INSPECTION: Yes able to speak in complete sentences, Yes symmetric chest movement and No tachypneic AUSCULTATION: clear to auscultation bilaterally OTHER: -on RA Cardio: COMMON NORMALS: regular rate, regular rhythm, S1 normal heart sound present, S2 normal heart sound present and No murmurs present (Cardio) RATE: regular rate RHYTHM: regular rhythm HEART SOUNDS: S1 normal heart sound present and S2 normal heart sound present GI: COMMON NORMALS: Normal to inspection, nondistended, normoactive bowel sounds present, Soft to palpation and non-tender PALPATION: Yes Soft to pal pation : BLADDER/KIDNEY EXAM: Yes catheter in place Extremity: COMMON NORMALS: normal to inspection, full ROM and no clubbing, cyanosis or edema; negative for no pedal edema Neuro: COMMON NORMALS: patient oriented x3, moves all extremities, no focal motor deficits and no sensory deficits noted SENSORIUM/ORIENTATION: Yes alert Psych: COMMON NORMALS: mental status grossly normal, Normal thought process present, cooperative, normal affect and speech normal SPEECH: Yes normal speech THOUGHT PROCESS: Normal thought process present Skin: COMMON NORMALS: no rashes or lesions noted, no jaundice, no petechiae and no mottling GENERAL SKIN EXAM: no rashes or lesions noted Urinary Catheter Management^: Aguilar: Cath Placed During This Visit: yes Reason for Continuing Indwelling Catheter: Other Urinary Catheter Date of Insertion: 07/07/20 Urinary Catheter Time of Insertion: 02:00 Data : 07/08/20 05:00 07/08/20 05:00 A&P Assessment and plan (1) Fracture of hip: -noted to have R hip fracture though unclear acuity, extent. Secondary to fall precipitated by dizziness -MRI ordered for better evaluation though unable to perform this due to pacemaker incompatibility with monitoring equipment, card information in paper chart -Ortho consult by Dr. Ladd appreciated -pain control as needed -fall precautions -has Aguilar catheter in place -VSS, continue to monitor -PT evaluation in AM appreciated; patient motivated, able to ambulate with walker with decreasing pain -repeat imaging in AM Status: Acute Qualifiers: Encounter type: initial encounter Fracture type: closed Laterality: right Qualified Code(s): S72.001A - Fracture of unspecified part of neck of right femur, initial encounter for closed fracture (2) Hyperglycemia: -A1c-5.4 -no hx of DM Status: Acute (3) Thrombocytopenia: -stable platelet count, continue to trend -monitor for bleeding; none so far -unclear etiology though has been noted to be low before Status: Acute (4) Dizziness: -recently started on Flomax shortly after which he had increased lightheadedness and fall; on hold -fall precautions -unable to check orthostatics due to inability to weight bear -telemetry monitoring -has pacemaker; recently interrogated in 06/2020, no abnormalities noted Status: Acute (5) Chronic kidney disease, stage III (moderate): -CKD stage 3, baseline Cr 2-3 -continue to monitor renal function, avoid nephrotoxins, renally dose meds -did require dialysis secondary to trauma with extensive injuries and resulting renal failure but has not required this in some time (2 yrs) Status: Chronic (6) History of trauma: -fell from a horse about 4 yrs ago with extensive injuries Status: Chronic (7) Lung mass: -records of ongoing workup requested Status: Chronic Additional A&P Information -Depression -BPH; continue Flomax -Chronic normocytic anemia, baseline Hg is around 10; continue to monitor H/H -DVT ppx with SCDs, hold AC due to potential surgery -Dispo: home -Code status: FULL code Attestations Medical Necessity Statement*: Patient requires hospitalization for continued pain control secondary to right hip pain secondary to fracture. Time Spent in Patient Care: 16 - 35 minutes (>than 50% of time spent in counselling and/or direct pt care on unit) . 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
[2020-07-08] MEDS: polyethylene glycol 3350 Pkt 17 gm PO (16:19)
[2020-07-08] MEDS: sennosides-docusate Tablet 1 TAB PO (18:14)
[2020-07-09] VITALS (8 sets, daily range): BP systolic 110–131; BP diastolic 63–69; PULSE 73–89; RESP 16–19; TEMP 36.7–37; O2SAT 97–98
[2020-07-09 04:27] LABS: Basophils % 0.7 %; Eosinophils # 0.2 10^3/uL (0.0-0.8); Eosinophils % 3.8 %; Hematocrit 29.6 % (42.0-52.0); Hemoglobin 9.6 g/dL (11.7-16.6); Lymphocytes # 1.1 10^3/uL (0.8-4.8); Lymphocytes % 18.5 %; Mean Corpuscular HGB Conc 32.4 g/dL (30.0-36.0); Mean Corpuscular Hemoglobin 30.4 pg (28.0-34.0); Mean Corpuscular Volume 93.7 fL (80-94); Mean Platelet Volume 9.9 fL (7.4-10.4); Monocytes # 0.5 10^3/uL (0.2-0.9); Monocytes % 8.5 %; Neutrophils # 4.17 10^3/uL (1.8-7.7); Nucleated Red Blood Cells % 0 %; Platelet Count 116 10^3/cmm (130-400); Red Blood Count 3.16 10^6/uL (4.1-5.3); Red Cell Distribution Width 12.6 % (12.1-15.1); White Blood Count 6.1 10^3/uL (4.0-10.0)
[2020-07-09 04:52] LABS: Magnesium 1.9 mg/dL (1.7-2.3)
[2020-07-09 04:54] LABS: Anion Gap 13.6 (5-19); Blood Urea Nitrogen 38 mg/dL (8-23); Calcium 8.7 mg/dL (8.5-10.5); Carbon Dioxide 22 mmol/L (22-29); Chloride 104 mmol/L (98-107); Glucose 131 mg/dL (65-115); Osmolality Calculated 279 mOsm/kg (285-295); Potassium 4.6 mmol/L (3.5-5.1); Sodium 135 mmol/L (136-145)
[2020-07-09] MEDS: sodium chloride 0.9% 1,000 ML 75 ML IV (05:02)
--- NOTE | 2020-07-09 07:00 | XRR_ITS ---
PROCEDURE INFORMATION: Exam: XR Right Hip with Pelvis when Performed Exam date and time: 07/09/2020 8:33 AM Age: 74 years old Clinical indication: Hip pain; Patient HX: Fall incomplete fracture of right hip; Additional info: Rule out fracture TECHNIQUE: Imaging protocol: XR Right hip with pelvis when performed. Views: 1 view. COMPARISON: CR (PELVIS, ) 07/08/2020 7:59 AM FINDINGS: Bones/joints: Subtle subcapital fracture of the right hip. No dislocation. Soft tissues: Unremarkable. XR/XR hip RT 2-3V wo/w pel* [id number] IMPRESSION: Subtle subcapital fracture of the right hip.
[2020-07-09] MEDS: sennosides-docusate Tablet 1 TAB PO (08:50)
[2020-07-09] MEDS: duloxetine 30 mg Capsule PO (08:50)
[2020-07-09] MEDS: tamsulosin 0.4 mg Capsule PO (08:50)
[2020-07-09] MEDS: polyethylene glycol 3350 Pkt 17 gm PO (08:50)
--- NOTE | 2020-07-09 10:22 | P.PN_ITS ---
Subjective Subjective: Interval history: Right hip pain much better. Up with therapy yesterday. Vitals/I&O/Wt Last Vital Signs Temp 98.5 F 07/09/20 07:21 Pulse 79 07/09/20 07:21 Resp 16 07/09/20 07:21 BP 110/63 07/09/20 07:21 Pulse Ox 97 07/09/20 07:21 07/08/20 07/09/20 07/09/20 22:59 06:59 14:59 Intake Total 1435 / 2035 953.75 / 2988.75 Output Total 450 / 1075 1600 / 2675 Balance 985 / 960 -646.25 / 313.75 Weight last 48 hrs Weight 175 lb 1.6 oz Weight 176 lb 5 oz Physical Exam Narrative: EXAM NARRATIVE: Feels some pain with extremes of motion. Can flex to 90 degrees, externally rotate 30 degrees, internally rotate 20 degrees. No tenderness over greater trochanter Urinary Catheter Management^: Aguilar: Cath Placed During This Visit: yes Reason for Continuing Indwelling Catheter: Other Urinary Catheter Date of Insertion: 07/07/20 Urinary Catheter Time of Insertion: 02:00 Data : 07/09/20 03:25 07/09/20 03:25 A&P Assessment and plan (1) Right hip pain: Status: Acute (2) Fracture of hip: Radiographs revealed no definitive acute changes in the femoral neck. Certainly there is no complete femoral neck fractures. History is incompatible with a stress fracture and I do not think this is a reasonable option. His exam would localize to something in the hip joint. Unfortunately we have been unable to obtain any imaging to definitively localize a fracture. He is more ambulatory with less pain. I think the best option would be to discharge him home with a touchdown weightbearing on the right lower extremity. I will see him back in 1 week with repeat radiographs. He is instructed to call me if he has any increased discomfort. 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
[2020-07-09] MEDS: oxyCODONE-APAP 5-325 mg Tablet 1 TAB PO (12:21)
--- NOTE | 2020-07-09 21:39 | P.DS_ITS ---
Discharge Providers Date of Admission: 07/07/20 00:06 Date of Discharge: July 09, 2020 Attending Provider at Admission: Xavier Reid MD Attending Provider at Discharge: Wild Martinez MD Primary Care Provider: Jt Rey Jr, MD Diagnoses at Discharge Discharge Diagnosis (1) Right hip pain: Status: Acute (2) Fracture of hip: Status: Acute Problem details: Right side Qualifiers: Encounter type: initial encounter Fracture type: closed Laterality: right Qualified Code(s): S72.001A - Fracture of unspecified part of neck of right femur, initial encounter for closed fracture Reason for Visit Reason for Visit: fall/ possible broken rt hip Hospital Course Discharge Summary: 74 y/o M presented with significant right hip pain with xray hip suggestive of questionable fracture. Unfortunately we have been unable to obtain any imaging to definitively localize a fracture. He was more ambulatory with less pain with inpatient conservative management and pain control.Per the best option was to discharge him home with a touchdown weightbearing on the right lower extremity and follow him back in 1 week with repeat radiographs. Physical Exam Const: COMMON NORMALS: patient oriented x3 HENMT: COMMON NORMALS: normocephalic, atraumatic, hearing grossly normal bilaterally and external ears normal HEAD & SCALP: normocephalic and atraumatic EXTERNAL EAR: Yes external ears normal Eye: COMMON NORMALS: no scleral icterus GENERAL EYE: appearance normal, both eyes and all related structures Chest: COMMONS NORMALS: normal inspection of the chest and normal palpation of entire chest wall CHEST: Yes Symmetrical chest wall rise Resp: COMMON NORMALS: normal respiratory effort, No retractions, No use of accessory muscles and clear to auscultation bilaterally EFFORT & INSPECTION: Yes symmetric chest movement AUSCULTATION: clear to auscultation bilaterally Cardio: COMMON NORMALS: regular rate, regular rhythm, S1 normal heart sound present, S2 normal heart sound present, No gallops present (Cardio), No murmurs present (Cardio), No rub (Cardio) and Peripheral pulses 2+ throughout RATE: regular rate RHYTHM: regular rhythm HEART SOUNDS: S1 normal heart sound present and S2 normal heart sound present PERIPHERAL PULSES: Peripheral pulses 2+ throughout GI: COMMON NORMALS: Normal to inspection, nondistended, normoactive bowel sounds present, Soft to palpation, non-tender, No hepatosplenomegaly present and no masses AUSCULTATION: Yes normoactive bowel sounds PALPATION: Yes Soft to palpation and Yes No hepatosplenomegaly present RECTAL EXAM: Yes deferred : COMMON NORMALS: Yes no CVA tenderness BLADDER/KIDNEY EXAM: Yes no CVA tenderness Back/Pelvis: COMMON NORMALS: no CVA tenderness Extremity: NARRATIVE EXTREMITY EXAM: Feels some pain with extremes of motion. Can flex to 90 degrees, externally rotate 30 degrees, internally rotate 20 degrees. No tenderness over greater trochanter Neuro: COMMON NORMALS: patient oriented x3 Urinary Catheter Management^: Aguilar: Cath Placed During This Visit: yes Reason for Continuing Indwelling Catheter: Other Urinary Catheter Date of Insertion: 07/07/20 Urinary Catheter Time of Insertion: 02:00 Discharge Data Data Completed and Pending: Completed Studies During Hospitalization Category Date Time Status CT pelvis wo con [id number] Urgent Cat Scan 07/06/20 21:38 Completed XR chest 1V fina ble [id number] Stat Exams 07/06/20 23:16 Completed XR hip RT 2-3V wo /w pel* [id number] Rout ine Exams 07/08/20 07:45 Completed XR hip RT 2-3V wo /w pel* [id number] Rout ine Exams 07/09/20 07:00 Completed XR hip RT 2-3V wo /w pel* [id number] Stat Exams 07/06/20 20:35 Completed CV echo complete* [id number] Routine Ultrasound 07/07/20 11:27 Completed Labs from last 24 hours 07/09/20 07/09/20 07/09/20 03:25 03:25 03:25 WBC 6.1 RBC 3.16 L Hgb 9.6 L Hct 29.6 L MCV 93.7 MCH 30.4 MCHC 32.4 RDW 12.6 Plt Count 116 L MPV 9.9 Neut % (Auto) 68.0 Lymph % (Auto) 18.5 [place] % (Auto) 8.5 Eos % (Auto) 3.8 Baso % (Auto) 0.7 Neut # (Auto) 4.17 Lymph # (Auto) 1.1 [place] # (Auto) 0.5 Eos # (Auto) 0.2 Baso # (Auto) 0.0 Nucleated RBC % (a uto) 0 Nucleated RBCs # 0.0 Sodium 135 L Potassium 4.6 Chloride 104 Carbon Dioxide 22 Anion Gap 13.6 BUN 38 H Creatinine 2.9 H GFR Calculation Not Reportable Glucose 131 H Calculated Osmolal ity 279 L Calcium 8.7 Magnesium 1.9 Vitals: Last Vital Signs Temp 98.3 F 07/09/20 12:38 Pulse 77 07/09/20 12:38 Resp 18 07/09/20 12:38 BP 123/68 07/09/20 12:38 Pulse Ox 97 07/09/20 12:38 Discharge Plan Discharge Patient Disposition: Home Condition: Stable Prescriptions: [place] 5-325 mg tablet 1 tab PO Q4H PRN (Reason: pain) Qty: 20 RF: 0 Continued Advair HFA 230-21 mcg/actuation HFA aerosol inhaler 2 puff INHALATION BID RF: 0 multivitamin Tablet 1 tab PO DAILY RF: 0 Zyrtec 10 mg Tablet 10 mg PO DAILY RF: 0 Flomax 0.4 mg Capsule 0.4 mg PO DAILY RF: 0 ProAir HFA 90 mcg/actuation Hfa Aerosol Inhaler 1 inh INHALATION QID PRN (Reason: Shortness Of Breath) RF: 0 duloxetine 30 mg capsule,delayed release(DR/EC) 30 mg PO DAILY RF: 0 Discharge Orders: Discharge Order (Routine); Ordered 07/09/20 Ordered By: Avila Ladd Other Ambulatory Orders: DME: Walker (Order) Location: None Selected Ordered By: Renate Mar Ref[facility]: [facility] [place]] Avila Ladd MD [Physician] - 1 week (Please follow up at ortho in one week. Please call for an appt [phone]) Jt Rey Jr, MD [Primary Care Provider] - 4-7 days (Please schedule a post hospital follow up with your primary care provider.) Discharge Diet: Advance as tolerated Discharge Activity: Limit activity as instructed Patient Instructions: Hydrocodone/Acetaminophen (By mouth) Activity Restrictions/Additional Instructions: Touchdown weightbearing right lower extremity Use walker Discharge Date/Time: 07/09/20 12:40 Discharge Attestations Time Spent in Discharge Care*: greater than 30 min Specific Discharge Activities: Specific discharge activities: educating patient, discussing with pcp/other providers, discussing with bilingual case manager/social workers/dc planners, documenting/other paperwork and evaluating patient/reviewing data Status at Discharge: Cognitive status at discharge: cognitively intact , Behavioral status at discharge: cooperative , Overall status at discharge: patient is back to baseline Quality Metrics Clinical Quality Measures During this hospital stay, did patient experience: None Coding Level of Care Code 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
== END 2020-07-09 12:40 | disposition home or self-care (01) | DRG 536 ==
LOC: ER 07-07 00:17 → MEDSURG 07-07 00:27
PROVIDERS: Family Medicine; Admitting Provider Internal Medicine; PCP Family Medicine; Visit Provider Internal Medicine
DX: S72.001A Fracture of unspecified part of neck of right femur, initial encounter for closed fracture (principal); W19.XXXA Unspecified fall, initial encounter; N18.3 Chronic kidney disease, stage 3 (moderate); F32.9 Major depressive disorder, single episode, unspecified; Z95.0 Presence of cardiac pacemaker; R91.8 Other nonspecific abnormal finding of lung field; Z87.891 Personal history of nicotine dependence; D69.6 Thrombocytopenia, unspecified; R42 Dizziness and giddiness; R73.9 Hyperglycemia, unspecified; D63.1 Anemia in chronic kidney disease; N40.0 Benign prostatic hyperplasia without lower urinary tract symptoms; Z93.3 Colostomy status; M25.551 Pain in right hip; Z99.2 Dependence on renal dialysis
CPT/HCPCS: 12345; 36415; 51701; 51702; 71045; 72192; 73502; 80048; 80053; 81003; 83036; 83735; 85025; 93005; 93306; 96375; 97110; 97116; 97161; 97530; 99283; J2270; J2405; J7030

== ENCOUNTER → 2020-07-17 09:57 | Outpatient (BNVA) | payer MEDICARE, OTHER, SELFPAY | PROVIDERS: PCP Family Medicine; Visit Provider Orthopaedic Surgery | DX: M25.551 Pain in right hip (principal); S72.001A Fracture of unspecified part of neck of right femur, initial encounter for closed fracture; X58.XXXA Exposure to other specified factors, initial encounter | CPT/HCPCS: 73502 ==

== ENCOUNTER 2021-06-25 10:18 | Outpatient (CLI) | payer MEDICARE, SELFPAY ==
--- NOTE | 2021-06-25 10:43 | CT_ITS ---
WS: [id number] CT CHEST WITHOUT INTRAVENOUS CONTRAST HISTORY: FUNGUS BALL TECHNIQUE: Contiguous 5 mm axial imaging performed on the thorax. Coronal and sagittal reformats are submitted. All CT scans at [facility] use at least one of these dose optimization techniq ues: automated exposure control; mA and/or kV adjustment per patient size (includes targeted exams wh ere dose is matched to clinical indication); or iterative reconstruction. CONTRAST: None DLP: 831.18 mGycm COMPARISON: 06/07/2020 Lungs and central airway: Again noted is a cavitary mass in the LEFT upper lobe abutting the pleura. The amount of pleural thickening in the cavity size. The overall cavity measures 6.6 x 3.4 cm. Pleura l thickening measures up to 0.5 cm. 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 Very slight increase in size over several prior years. There is additional mild scarri ng extending towards the LEFT hilum. Linear atelectasis at the RIGHT lung base with mild improvement. There are a few scattered benign granulomatous. Pleura: No effusions. Heart and pericardium: Top normal size heart. Dual lead cardiac pacer wires are noted. Mediastinum and deanna: Solid mass in the high RIGHT paratracheal region with mild mass effect upon the RIGHT esophagus is unchanged measuring 3.0 x 2.9 cm. This is arising from the thyroid without interv al change. Subcentimeter mediastinal and hilar lymph nodes. Vessels: Mild atherosclerosis aorta. Pulmonary artery size is equal to the aorta. Chest wall and lower neck: No soft tissue masses. Upper abdomen: Prior cholecystectomy. Stable hepatic cyst LEFT lobe. Small hiatal hernia. No adrenal mass. Osseous structures: Degenerative disc disease and spondylitic changes within the thoracic spine. No d estructive bone process. CT/CT chest wo con [id number] IMPRESSION: 1. Again noted is a cavitary lesion in the LEFT upper lobe with adjacent pleur al thickening. Very slight increase in size of the cavitary lesion and the intr acavitary nodule. Increase has been since the prior study of 06/07/2020. Most typ ical for aspergilloma. 2. No new lesions or new adenopathy. 3. RIGHT inferior thyroid nodule extends substernal is probably a goiter. 4. Chronic emphysema. No pneumonia or adenopathy.
== END 2021-06-25 10:19 | disposition home or self-care (01) ==
PROVIDERS: Visit Provider Internal Medicine Pulmonary Disease
DX: B49 Unspecified mycosis (principal); J43.9 Emphysema, unspecified; E04.1 Nontoxic single thyroid nodule
CPT/HCPCS: 71250

== ENCOUNTER → 2022-02-20 14:44 | Outpatient (BNVA) | payer MEDICARE, SELFPAY | PROVIDERS: PCP Family Medicine; Visit Provider Surgery | DX: R42 Dizziness and giddiness (principal); R04.2 Hemoptysis | CPT/HCPCS: 99203 ==

== ENCOUNTER 2022-02-21 19:28 | Emergency (ER) | payer MEDICARE, SELFPAY ==
[2022-02-21 19:51] VITALS: BP 151/75; PULSE 80; RESP 16; TEMP 36.4; O2SAT 98; BMI 25.1
[2022-02-21 21:48] LABS: Basophils % 0.6 %; Eosinophils # 0.1 10^3/uL (0.0-0.8); Eosinophils % 1.9 %; Hematocrit 33.2 % (42.0-52.0); Hemoglobin 11.3 g/dL (11.7-16.6); Lymphocytes # 1.8 10^3/uL (0.8-4.8); Lymphocytes % 26.4 %; Mean Corpuscular Volume 91.2 fl (80-94); Mean Platelet Volume 8.4 fL (7.4-10.4); Monocytes # 0.7 10^3/uL (0.2-0.9); Monocytes % 9.8 %; Neutrophils # 4.08 10^3/uL (1.8-7.7); Neutrophils % 60.6 %; Nucleated Red Blood Cells % 0 %; Platelet Count 150 10^3/cmm (130-400); Red Blood Count 3.64 10^6/uL (4.1-5.3); Red Cell Distribution Width 13.1 % (12.1-15.1); White Blood Count 6.7 10^3/uL (4.0-10.0)
--- NOTE | 2022-02-21 21:49 | CTR_ITS ---
PROCEDURE INFORMATION: Exam: CT Maxillofacial Without Contrast, Sinus Exam date and time: 02/21/2022 10:33 PM Age: 76 years old Clinical indication: Other: Bloody drainage; Patient HX: C/O bloody sinus drainage; Additional info: Bleeding TECHNIQUE: Imaging protocol: CT Maxillofacial without contrast. Focus on the sinuses. Radiation optimization: All CT scans at this facility use at least one of these dose optimization techniques: automated exposure control; mA and/or kV adjustment per patient size (includes targeted exams where dose is matched to clinical indication); or iterative reconstruction. COMPARISON: CR Sinuses Complete* [id number] 07/08/2019 1:01 PM RADIATION DOSE METRICS: Total DLP (mGy-cm): 521.9 FINDINGS: Frontal sinuses: Normal. No air-fluid levels. Ethmoid air cells: Normal. No air-fluid levels. Sphenoid sinuses: Normal. No air-fluid levels. Maxillary sinuses: Normal. No air-fluid levels. Ostiomeatal units are patent. Nasal cavity/Septum: Unremarkable. Orbital cavities: Prior cataract surgery. The globes are otherwise unremarkable. Bones/joints: Unremarkable. Soft tissues: Unremarkable. CT/CT sinus wo con* [id number] IMPRESSION: 1. Unremarkable sinuses. No evidence for sinusitis.
--- NOTE | 2022-02-21 21:52 | ED_ITS ---
Documented by User: JAYSON Muro 02/22/22 00:05 HPI - General Adult General: Chief complaint: General Medical Stated complaint: coughing blood Time Seen by Provider: 02/21/22 21:33 History of Present Illness: States he has had bleeding down the back of his throat from his sinuses for the last week. He said he has had 4 separate incidents where he has had bleeding. Says worse today and is having some bright red blood going back to his throat and he is cough and spitting it back up. Says allergies been flared up pretty bad last couple weeks. He says he takes no blood pressure medication are blood thinners. Denies any sinus pain or pressure or fever. Associated symptoms: Deny chest pain, dyspnea, headache(s), nausea, rash or vomiting Review of Systems Narrative: /Spit up blood. 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 Family History Other CAD (coronary artery disease) Social History Smoking and tobacco status: former smoker Alcohol intake: never Physical Exam Const: COMMON NORMALS: no acute distress, patient oriented x3 and alert HENMT: COMMON NORMALS: normocephalic, external ears normal, Normal external nose present and Normal nasal mucous membranes and turbinates present HEAD & SCALP: normocephalic NOSE: Normal external nose present, Normal nares present, Normal nasal mucous membranes and turbinates present and No nasal discharge present; no Epistaxis present EXTERNAL EAR: Yes external ears normal THROAT: posterior oropharynx normal (Unknown seen blood on the back of his throat) OTHER: Sinuses nontender Eye: COMMON NORMALS: EOMs intact bilaterally Neck/C-Spine: COMMON NORMALS: no JVD Resp: COMMON NORMALS: normal respiratory effort and No use of accessory muscles Cardio: COMMON NORMALS: no JVD GI: INSPECTION: Yes normal to inspection Extremity: COMMON NORMALS: normal to inspection and full ROM Neuro: COMMON NORMALS: patient oriented x3 SENSORIUM/ORIENTATION: Yes alert Psych: COMMON NORMALS: mental status grossly normal Skin: COMMON NORMALS: no rashes or lesions noted GENERAL SKIN EXAM: no rashes or lesions noted Course Vital Signs: Vital signs: Vital Signs Temperature 97.5 F L 02/21/22 19:51 Pulse Rate 80 02/21/22 19:51 Respiratory Rate 16 02/21/22 19:51 Blood Pressure 151/75 02/21/22 19:51 Pulse Oximetry 98 02/21/22 19:51 [facility] - General Adult Medical Decision Making Patient presents with posterior nasal bleeding sporadic over the last week. Laboratory studies were negative for any concerning factors. CT of sinuses and chest x-ray was done. CT signs are negative. Chest x-ray consistent with past checks x-rays which shows a cavitation which has had 2 biopsies done and both with biopsies been negative. Patient was given Afrin nasal spray here in the ER and was patient has not had any more bleeding since being here in the ER. Patient encouraged to use Afrin, nasal saline and talk to primary care about referral to ENT about possible cauterization. Case was discussed with Dr. Olguin. Lab Data : 02/21/22 21:[address] 02/21/22 21:49 IMPRESSION: 1. Unremarkable sinuses. No evidence for sinusitis. Chest X-Ray 02/21/22 21:54 IMPRESSION: 1. Stable wedge-shaped lesion in the left upper lobe. 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 Consider follow-up CT scan with comparison to prior studies. Laboratory Results WBC 6.7 10^3/uL (4.0-10.0) 02/21/22 21:42 RBC 3.64 10^6/uL (4.1-5.3) L 02/21/22 21:42 Hgb 11.3 g/dL (11.7-16.6) L 02/21/22 21:42 Hct 33.2 % (42.0-52.0) L 02/21/22 21: MCV 91.2 fl (80-94) 02/21/22 21:42 MCH 31.0 pg (28.0-34.0) 02/21/22 21:42 MCHC 34.0 g/dL (30.0-36.0) 02/21/22 21: RDW 13.1 % (12.1-15.1) 02/21/22 21:42 Plt Count 150 10^3/cmm (130-400) 02/21/22 21:42 MPV 8.4 fL (7.4-10.4) 02/21/22 21: Neut % (Auto) 60.6 % 02/21/22 21:42 Lymph % (Auto) 26.4 % 02/21/22 21:42 Hemphill % (Auto) 9.8 % 02/21/22 21: Eos % (Auto) 1.9 % 02/21/22 21: Baso % (Auto) 0.6 % 02/21/22 21:42 Neut # (Auto) 4.08 10^3/uL (1.8-7.7) 02/21/22 21: Lymph # (Auto) 1.8 10^3/uL (0.8-4.8) 02/21/22 21:42 Hemphill # (Auto) 0.7 10^3/uL (0.2-0.9) 02/21/22 21: Eos # (Auto) 0.1 10^3/uL (0.0-0.8) 02/21/22 21: Baso # (Auto) 0.0 10^3/uL (0.0-0.1) 02/21/22 21:42 Nucleated RBC % (auto) 0 % 02/21/22 21: Nucleated RBCs # 0.0 /100WBC 02/21/22 21:42 PT 13.70 SECONDS (12.1-14.9) 02/21/22 21:42 INR 1.02 (0.8-1.2) 02/21/22 21:42 Discharge Plan Discharge Patient Disposition: Home Clinical Impression: Epistaxis, recurrent, Chronic seasonal allergic rhinitis due to pollen Condition: Stable Prescriptions: No Action buspirone 30 mg tablet 25 mg PO BID 0RF prenat.vits,cheyanne,uwd-ctel-zrotj Tablet 1 tab PO DAILY 0RF ferrous sulfate [Feosol] 325 mg (65 mg iron) tablet 325 mg PO DAILY 0RF Advair HFA 230-21 mcg/actuation HFA aerosol inhaler 2 puff INHALATION BID 0RF multivitamin Tablet 1 tab PO DAILY 0RF Zyrtec 10 mg Tablet 10 mg PO DAILY 0RF Flomax 0.4 mg Capsule 0.4 mg PO DAILY 0RF ProAir HFA 90 mcg/actuation Hfa Aerosol Inhaler 1 inh INHALATION QID PRN (Reason: Shortness Of Breath) 0RF duloxetine 30 mg capsule,delayed release(DR/EC) 30 mg PO DAILY 0RF Gordon 5-325 mg tablet 1 tab PO Q4H PRN (Reason: pain) Qty: 20 0RF Discharge Orders: Discharge ED (Routine); Ordered 02/21/22 Ordered By: Ortega Bajwa Referrals: Andreia Reid MD [Primary Care Provider] - Discharge Diet: Usual diet Discharge Activity: Resume usual activity Patient Instructions: Nosebleed (ED), Allergic Rhinitis (ED) Activity Restrictions/Additional Instructions: Use bkml-jki-inlpuen Afrin no spray. Also recommend using Flonase after nosebleeds improved. Contact your primary care provider if you need a referral to an ENT for possible cauterization of the nose. Recommend also using [employer] [place] daily basis during allergy season. 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 Family History Other CAD (coronary artery disease) Social History Smoking and tobacco status: former smoker Alcohol intake: never Course Vital Signs: Vital signs: Vital Signs Temperature 97.5 F L 02/21/22 19:51 Pulse Rate 80 02/21/22 19:51 Respiratory Rate 16 02/21/22 19:51 Blood Pressure 151/75 02/21/22 19:51 Pulse Oximetry 98 02/21/22 19:51 MDM - General Adult Medical Decision Making Patient presents with posterior nasal bleeding sporadic over the last week. Laboratory studies were negative for any concerning factors. CT of sinuses and chest x-ray was done. CT signs are negative. Chest x-ray consistent with past checks x-rays which shows a cavitation which has had 2 biopsies done and both with biopsies been negative. Patient was given Afrin nasal spray here in the ER and was patient has not had any more bleeding since being here in the ER. Patient encouraged to use Afrin, nasal saline and talk to primary care about referral to ENT about possible cauterization. Case was discussed with Dr. Olguin. This patient was originally seen by JAYSON Sanz.? I agree with his history, evaluation, and treatment. Lab Data : 02/21/22 21:[address] 02/21/22 21:49 IMPRESSION: 1. Unremarkable sinuses. No evidence for sinusitis. Chest X-Ray 02/21/22 21:54 IMPRESSION: 1. Stable wedge-shaped lesion in the left upper lobe. 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 Consider follow-up CT scan with comparison to prior studies. Laboratory Results WBC 6.7 10^3/uL (4.0-10.0) 02/21/22 21:42 RBC 3.64 10^6/uL (4.1-5.3) L 02/21/22 21:42 Hgb 11.3 g/dL (11.7-16.6) L 02/21/22 21:42 Hct 33.2 % (42.0-52.0) L 02/21/22 21:42 MCV 91.2 fl (80-94) 02/21/22 21: MCH 31.0 pg (28.0-34.0) 02/21/22 21: MCHC 34.0 g/dL (30.0-36.0) 02/21/22 21:42 RDW 13.1 % (12.1-15.1) 02/21/22 21:42 Plt Count 150 10^3/cmm (130-400) 02/21/22 21:42 MPV 8.4 fL (7.4-10.4) 02/21/22 21:42 Neut % (Auto) 60.6 % 02/21/22 21:42 Lymph % (Auto) 26.4 % 02/21/22 21:42 Hemphill % (Auto) 9.8 % 02/21/22 21:42 Eos % (Auto) 1.9 % 02/21/22 21:42 Baso % (Auto) 0.6 % 02/21/22 21:42 Neut # (Auto) 4.08 10^3/uL (1.8-7.7) 02/21/22 21:42 Lymph # (Auto) 1.8 10^3/uL (0.8-4.8) 02/21/22 21:42 Hemphill # (Auto) 0.7 10^3/uL (0.2-0.9) 02/21/22 21:42 Eos # (Auto) 0.1 10^3/uL (0.0-0.8) 02/21/22 21:42 Baso # (Auto) 0.0 10^3/uL (0.0-0.1) 02/21/22 21:42 Nucleated RBC % (auto) 0 % 02/21/22 21:42 Nucleated RBCs # 0.0 /100WBC 02/21/22 21:42 PT 13.70 SECONDS (12.1-14.9) 02/21/22 21:42 INR 1.02 (0.8-1.2) 02/21/22 21:42 Discharge Plan Discharge Patient Disposition: Home Clinical Impression: Epistaxis, recurrent, Chronic seasonal allergic rhinitis due to pollen Condition: Stable Prescriptions: No Action buspirone 30 mg tablet 25 mg PO BID 0RF prenat.vits,cheyanne,kfh-vkzv-oslvu Tablet 1 tab PO DAILY 0RF ferrous sulfate [Feosol] 325 mg (65 mg iron) tablet 325 mg PO DAILY 0RF Advair HFA 230-21 mcg/actuation HFA aerosol inhaler 2 puff INHALATION BID 0RF multivitamin Tablet 1 tab PO DAILY 0RF Zyrtec 10 mg Tablet 10 mg PO DAILY 0RF Flomax 0.4 mg Capsule 0.4 mg PO DAILY 0RF ProAir HFA 90 mcg/actuation Hfa Aerosol Inhaler 1 inh INHALATION QID PRN (Reason: Shortness Of Breath) 0RF duloxetine 30 mg capsule,delayed release(DR/EC) 30 mg PO DAILY 0RF Gordon 5-325 mg tablet 1 tab PO Q4H PRN (Reason: pain) Qty: 20 0RF Discharge Orders: Discharge ED (Routine); Ordered 02/21/22 Ordered By: Ortega Bajwa Referrals: Andreia Reid MD [Primary Care Provider] - Discharge Diet: Usual diet Discharge Activity: Resume usual activity Patient Instructions: Nosebleed (ED), Allergic Rhinitis (ED) Activity Restrictions/Additional Instructions: Use poia-xke-rxatvum Afrin no spray. Also recommend using Flonase after nosebleeds improved. Contact your primary care provider if you need a referral to an ENT for possible cauterization of the nose. Recommend also using [employer] [place] daily basis during allergy season. Coding Level of Care Code ED Lead Systems Developer for Flash Fwd Exam Comprehensive
--- NOTE | 2022-02-21 21:54 | XRR_ITS ---
PROCEDURE INFORMATION: Exam: XR Chest Exam date and time: 02/21/2022 10:04 PM Age: 76 years old Clinical indication: Prior surgery; Surgery date: 6+ months; Surgery type: Pacemaker; Patient HX: PT states he has been coughing up blood for 7 days, more blood volume today, bright red blood when he coughs it up; Additional info: Blood, unsure source TECHNIQUE: Imaging protocol: XR of the chest. Views: 1 view. COMPARISON: CT chest con [id number] 06/25/2021 10:56 AM FINDINGS: Tubes, catheters and devices: Intact dual lead left subclavian pacemaker. Lungs: Emphysema. Mild atelectasis or scarring in the right lung base. Stable wedge-shaped lesion in the peripheral left upper lobe, extending towards the hilum. Calcified left hilar lymph nodes. Pleural spaces: Unremarkable. No pleural effusion. No pneumothorax. Heart/Mediastinum: Unremarkable. No cardiomegaly. Bones/joints: Old right rib fractures. XR/XR chest 1V portable [id number] IMPRESSION: 1. Stable wedge-shaped lesion in the left upper lobe. 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 Consider follow-up CT scan with comparison to prior studies.
[2022-02-21 22:04] LABS: INR 1.02 (0.8-1.2)
[2022-02-21] MEDS: oxymetazoline 0.05% Nasal Spray 15 mL 2 SPRAY NOSTRIL-B (23:02)
== END 2022-02-21 23:08 | disposition home or self-care (01) ==
PROVIDERS: Emergency Provider Nurse Practitioner Family; PCP Family Medicine
DX: R04.0 Epistaxis (principal); Z87.891 Personal history of nicotine dependence; J30.1 Allergic rhinitis due to pollen; Z79.891 Long term (current) use of opiate analgesic
CPT/HCPCS: 70486; 71045; 85025; 85610; 99283

== ENCOUNTER 2022-02-25 13:01 | Outpatient (CLI) | payer MEDICARE, SELFPAY ==
--- NOTE | 2022-02-25 13:17 | CT_ITS ---
WS: [id number] CT CHEST TECHNIQUE: Noncontrast CT of the chest with coronal and sagittal reformatted images. CLINICAL INFORMATION: HEMOPHYSIS COMPARISON: CT chest June 25, 2021 DLP: 781.[address] scans at [facility] use at least one of these dose optimization techniques: automated e xposure control; mA and/or kV adjustment per patient size (includes targeted exams where dose is matc hed to clinical indication); or iterative reconstruction. FINDINGS: Again seen is the LEFT upper lobe cavitary lesion with associated pleural thickening. Associated intr acavitary nodule. Cavitary lesion measures approximately 3.5 x 7.9 CM slightly increased compared to previous. Associated intracavitary nodule is not significantly changed. Progressed surrounding pleura l thickening with airspace consolidation RIGHT upper lobe anteriorly with air bronchograms has progre ssed compared to compared to the prior examination. Airspace consolidation may be due to postobstructive pneumonia. Otherwise no significant interval wing nges compared to previous. Subsegmental atelectasis RIGHT lower lobe. Splenic granulomas. Subcentimeter RIGHT thyroid goiter is unchanged in appearance measuring 2.0 x 3.0 CM. Normal caliber thoracic aorta. Aortic calcification. Coronary calcification. Calcified LEFT hilar nodes. A few calcified granulomas. No mediastinal or hilar lymphadenopathy. Adrenal glands are normal. Cholecystectomy clips. Incidental hepatic cysts. Normal GE junction. Hyper trophic changes thoracic spine. Cardiac pacer. CT/CT chest wo con [id number] IMPRESSION: 1. Again seen is the cavitary lesion LEFT upper lobe with adjacent pleural thi ckening. Cavitary lesion has increased in size measuring 3.5 x 7.9 cm with stab le intracavitary nodule. 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 2. Interval increase in the surrounding pleural thickening and airspace consol idation in the adjacent LEFT upper lobe anteriorly contiguous with the suspecte d aspergilloma. Associated air bronchograms. Some this may be due to postobstru ctive pneumonia. 3. Otherwise no significant changes compared to previous. 4. Previously described RIGHT substernal goiter is stable.
== END 2022-02-25 13:02 | disposition home or self-care (01) ==
PROVIDERS: PCP Family Medicine; Visit Provider Internal Medicine Pulmonary Disease
DX: B49 Unspecified mycosis (principal); B44.9 Aspergillosis, unspecified; R04.2 Hemoptysis
CPT/HCPCS: 71250

== ENCOUNTER → 2022-03-26 08:41 | Outpatient (BNVA) | payer MEDICARE, SELFPAY | PROVIDERS: PCP Family Medicine; Visit Provider Otolaryngology | DX: R04.2 Hemoptysis (principal); R04.0 Epistaxis; Z87.891 Personal history of nicotine dependence | CPT/HCPCS: 99203; 99204 ==

== ENCOUNTER 2022-03-27 08:59 | Outpatient (CLI) | payer MEDICARE, SELFPAY ==
--- NOTE | 2022-03-27 14:37 | PFTS_ITS ---
Date of Study:03/27/22 Date of Dictation: MECHANICS: Forced vital capacity (FVC) is normal. Forced expiratory volume in one second (FEV1) is normal. FEV1/FVC is reduced. FLOW VOLUME LOOP: Reduced lateral lung volumes with scooping. LUNG VOLUMES: Total lung capacity (TLC) is normal. Residual volume (RV) is normal. DIFFUSING CAPACITY FOR CARBON MONOXIDE: Mild reduced. INTERPRETATION: The prebronchodilator spirometry is consistent with mild airflow obstruction. No postbronchodilator spirometry was performed. Flow volume loop is consistent with small airways disease. Lung volumes are normal. Gas exchange (DLCO) is mildly reduced. MTDD
== END 2022-03-27 09:00 | disposition home or self-care (01) ==
LOC: RT 09:05
PROVIDERS: PCP Family Medicine; Visit Provider Internal Medicine Pulmonary Disease
DX: J41.1 Mucopurulent chronic bronchitis (principal)
CPT/HCPCS: 94010; 94726; 94729

== ENCOUNTER → 2022-04-02 08:27 | Outpatient (BNVA) | payer MEDICARE, SELFPAY | PROVIDERS: PCP Family Medicine; Visit Provider Otolaryngology | DX: R04.2 Hemoptysis (principal); R04.0 Epistaxis; R91.8 Other nonspecific abnormal finding of lung field; Z87.891 Personal history of nicotine dependence | CPT/HCPCS: 31575; 99214; 99215 ==

== ENCOUNTER 2022-04-16 13:57 | Outpatient (CLI) | payer MEDICARE, SELFPAY ==
--- NOTE | 2022-04-16 14:26 | CT_ITS ---
WS: [id number] CT SINUSES TECHNIQUE: Noncontrast CT of the paranasal sinuses with coronal and sagittal reformatted images. CLINICAL INFORMATION: posible vascular lesion in sinus COMPARISON: CT February 21, 2022 DLP: 505.[address] scans at [facility] use at least one of these dose optimization techniques: automated e xposure control; mA and/or kV adjustment per patient size (includes targeted exams where dose is matc hed to clinical indication); or iterative reconstruction. FINDINGS: Mild nasal septal deviation RIGHT to LEFT measuring 2 to 3 mm. Paranasal sinuses are well aerated. Fr ontal sinuses are well aerated. Mild mucosal thickening in the frontal ethmoidal recesses. Mild mucos al thickening ethmoid air cells. Maxillary sinuses well aerated. Sphenoid sinuses are well aerated. P artially visualized mastoid air cells well aerated. Normal posterior nasopharynx. Pneumatization of the LEFT pterygoid plate. LEFT Agger Nasi cell. Mild narrowing of the ostiomeatal units bilaterally which remain patent. RIGHT mecca bullosa.Mucosal thickening or tiny polyp along th e LEFT nasal vault near the olfactory recess measuring 9.6 x 5.4 mm. Normal pterygopalatine fossa. Partially visualized intracanal contents normal for age. CT/CT sinus wo con* [id number] IMPRESSION: 1. Minimal RIGHT to LEFT nasal septal deviation measuring 2 3 mm. 2. Paranasal sinuses are well aerated. Mild mucosal thickening ethmoid air clemencia ls. 3. Mild narrowing of the ostiomeatal units which remain patent. 4. Tiny polyp or focal mucosal thickening in the LEFT nasal vault near the olf actory recess measuring 9.6 x 5.4 mm. No other focal suspicious lesions. 5. RIGHT mecca bullosa. LEFT Agger Nasi cell. 6. Partially visualized mastoid air cells are well aerated. Normal posterior n asopharynx.
== END 2022-04-16 13:58 | disposition home or self-care (01) ==
LOC: RAD 13:58
PROVIDERS: PCP Family Medicine; Visit Provider Otolaryngology
DX: R04.0 Epistaxis (principal); R04.2 Hemoptysis
CPT/HCPCS: 70486

== ENCOUNTER → 2022-04-22 09:32 | Outpatient (BNVA) | payer MEDICARE, SELFPAY | PROVIDERS: PCP Family Medicine; Visit Provider Otolaryngology | DX: R04.0 Epistaxis (principal); J34.89 Other specified disorders of nose and nasal sinuses; Z87.891 Personal history of nicotine dependence | CPT/HCPCS: 99214 ==

== ENCOUNTER 2022-05-01 07:00 | Day surgery (SDC) | payer MEDICARE, SELFPAY ==
[2022-04-30 11:07] VITALS: BMI 25.1
[2022-05-01] VITALS (9 sets, daily range): BP systolic 133–148; BP diastolic 66–96; PULSE 66–94; RESP 16–18; TEMP 35.7–36.2; O2SAT 94–100
[2022-05-01] MEDS: sodium chloride 0.9% 1,000 ML 30 ML IV (07:42)
--- NOTE | 2022-05-01 07:48 | ECG_ITS ---
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 Measurements Intervals [place] Rate: 99 P: 267 CT: 180 QRS: -84 QRSD: 152 T: 67 QT: 403 QTc: 519 Interpretive Statements ELECTRONIC ATRIAL PACEMAKER ELECTRONIC VENTRICULAR PACEMAKER Compared to ECG 07/07/2020 08:03:48 No significant changes Electronically Signed On 05-01-2022 19:01:11 CDT by Jona Nagel M.D. [id number]
--- NOTE | 2022-05-01 07:52 | W.PM.OPSUD ---
Surgery/Procedure H&P Update DATE OF PROCEDURE: May 01, 2022 DATE H&P PERFORMED: 04/22/22 H&P UPDATE INFORMATION: I have reviewed H&P completed within last 30 days, I have examined patient prior to procedure and No changes to prior documentation CHANGES TO PREVIOUS DOCUMENTATION: Patient states that he has not had any bleeding noticed from the nose or expectorating in the last 2 days. PREOP DIAGNOSIS: Bilateral nasal mass PRIMARY INDICATION FOR PROCEDURE: Recurrent bleeding probably from posterior superior septal region vascular mass. PLANNED PROCEDURE: Operation Date: 05/01/22 08:40 Proposed Procedures p endoscopic excision nasal mass bilaterally 39291,J34.89(Not Applicable) - Conner Hinds MD
--- NOTE | 2022-05-01 07:59 | P.ANESASSM_ITS ---
Pre-Anesthetic Assessment Height/Weight: Height 1.75 m Weight 77.111 kg Temp Pulse Resp BP Pulse Ox 96.2 F L 71 18 133/74 94 05/01/22 07:09 05/01/22 07:09 05/01/22 07:09 05/01/22 07:09 05/01/22 07:09 Preop Diagnosis: Bilateral nasal mass Operation Date: 05/01/22 08:40 Proposed Procedures p endoscopic excision nasal mass bilaterally 78764,J34.89(Not Applicable) - Conner Hinds MD Familial anesthetic complications: Patient has hx of PONV Was Beta Matthias taken within 24 hours: N/A Last intake: Intake Last Liquid Date 04/30/22 Last Liquid Time 19:00 Last Solid Date 04/30/22 Last Solid Time 19:00 Social No alcohol and No tobacco Exam alert, oriented x 3, clear to auscultation bilaterally and regular rate & rhythm Airway Submandibular: Other (Less than 2 finger breadths ) Cervical ROM: within normal limits Mallampati: Class III Dentition: partials Pulmonary Asthma Mass in cavity of nose Hx of lung mass Denies SOB w/ exertion CV/HEM Anemia Pacemaker placed after traumatic horse accident involving abdominal injury with bile leak and injury to kidneys, liver, gall bladder Patient does not know indication for pacemaker Denies CAD, valvular disease METS > 4 ?? 05/01/22 ? Interpretive Statements ELECTRONIC ATRIAL PACEMAKER ELECTRONIC VENTRICULAR PACEMAKER ABNORMAL RHYTHM ECG Compared to ECG 07/07/2020 08:03:48 No significant changes [email or web address] [id number] Chronic Renal Insufficiency Previously on dialysis, since has recovered some function BPH Hepatic None reported GI None reported Metabolic None reported Musc/skel Osteoarthritis/DJD Neuropsych None reported Anesthetic Plan ASA status: 3 (76 year old male with asthma, nasal mass, lung mass, pacemaker in place, and CKD previously requiring dialysis ) Anesthesia: Anesthesia Evaluation and General Other: We discussed risk and benefits of general anesthesia including PONV, sore throat (sometimes severe), corneal abrasion, positioning and peripheral nerve injuries, life threatening allergic reaction, post operative ICU admission requiring prolonged intubation, aspiration, stroke, heart attack, , and rare incidences of recall. Patient consents to proceed with general anesthesia. Risk of > 500 ml blood loss (7ml/kg in children): No Medications/Allergies Home Medications Medication Instructions Recorded Confirmed Last Taken Type albuterol sulfate 90 mcg/actuation 1 inh INHALATION QID PRN 07/07/20 05/01/22 05/01/22 History aerosol inhaler (ProAir HFA) cetirizine 10 mg tablet (Zyrtec) 10 mg PO DAILY 07/07/20 05/01/22 04/30/22 History ferrous sulfate 325 mg (65 mg 325 mg PO DIRECTED 02/20/22 05/01/22 04/28/22 History iron) tablet (Feosol) prenat.vits,cheyanne,lcz-nirm-xgikp 1 tab PO DAILY 02/20/22 05/01/22 04/30/22 History Allergies Allergy/AdvReac Type Severity Reaction Status Date / Time Penicillins Allergy Intermediate ALGY-Hives Verified 04/30/22 10:58 fentanyl Allergy ADR-Agitate Verified 04/30/22 10:58 d sulfamethoxazole Allergy ALGY-Hives Verified 04/30/22 10:58 [From Bactrim] trimethoprim [From Bactrim] Allergy ALGY-Hives Verified 04/30/22 10:58 Current Medications Generic Name Dose Route Start Last Admin Trade Name Freq PRN Reason Stop Dose Admin Sodium Chloride 1,000 mls @ 30 mls/hr 05/01/22 07:15 05/01/22 07:42 Sodium Chloride 0.9% IV 05/02/22 07:14 30 mls/hr .Q24H ALEXUS Administration PFSH Anesthesia Medical History BPH (benign prostatic hyperplasia) Chronic kidney disease, stage III (moderate) Depression Dysuria History of trauma Secondary to crush injury by horse where he required pacemaker, appendectomy, colostomy, dialysis 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 Family History Other CAD (coronary artery disease) Social History Smoking and tobacco status: former smoker (quit 50 years ago ) Alcohol intake: never Data Anesthesia Cardiac Studies: Echocardiogram Ultrasound 07/07/20
[2022-05-01] MEDS: diphenhydrAMINE 50 mg/mL SDV 1mL 12.5 MG IVP (08:03)
[2022-05-01] MEDS: azithromycin 500 MG in sodium chloride 0.9% 250 ML 250 MG IV (08:19)
[2022-05-01 08:32] LABS: Basophils % 0.5 %; Eosinophils # 0.2 10^3/uL (0.0-0.8); Eosinophils % 3.3 %; Hematocrit 33.8 % (42.0-52.0); Hemoglobin 11.6 g/dL (11.7-16.6); Lymphocytes # 1.2 10^3/uL (0.8-4.8); Lymphocytes % 21.4 %; Mean Corpuscular HGB Conc 34.3 g/dL (30.0-36.0); Mean Corpuscular Hemoglobin 30.4 pg (28.0-34.0); Mean Corpuscular Volume 88.5 fl (80-94); Mean Platelet Volume 9.3 fL (7.4-10.4); Monocytes # 0.5 10^3/uL (0.2-0.9); Monocytes % 9.6 %; Neutrophils # 3.57 10^3/uL (1.8-7.7); Neutrophils % 64.7 %; Nucleated Red Blood Cells % 0 %; Platelet Count 161 10^3/cmm (130-400); Red Blood Count 3.82 10^6/uL (4.1-5.3); White Blood Count 5.5 10^3/uL (4.0-10.0)
[2022-05-01 08:58] LABS: Anion Gap 19.2 (5-19); Blood Urea Nitrogen 44 mg/dL (8-23); Calcium 9.1 mg/dL (8.5-10.5); Carbon Dioxide 18 mmol/L (22-29); Chloride 106 mmol/L (98-107); Glucose 103 mg/dL (65-115); Osmolality Calculated 299 mOsm/kg (285-295); Potassium 4.2 mmol/L (3.5-5.1); Sodium 139 mmol/L (136-145)
[2022-05-01] MEDS: oxymetazoline 0.05% Nasal Spray 15 mL 2 SPRAY NOSTRIL-B (09:26)
--- NOTE | 2022-05-01 09:28 | SUR.OPER ---
0904 8.5ml 1% lidocaine with epi 1:100,[address] paredes
--- NOTE | 2022-05-01 09:39 | P.OP_ITS ---
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 Implants: No implants Specimens removed/disposition: No specimen Pathology: No specimen for pathology Surgeon: Conner Hinds MD Anesthesia: General and Local Estimated blood loss: 10 mL Complications: No complications encountered Findings: Purple vascular masses on the posterior superior septum near the cranial areas bilaterally. Brief History: 76-year-old male patient has been having problems with what he perceives as posterior epistaxis draining down the back of the throat. He then coughs up blood. 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 This was confirmed on CT scan. Patient being brought to the operating room at this time to undergo ablation of these lesions with the Coblator. The procedure its risks and complications were explained and informed consent was granted. Risks included bleeding infection numbness scarring swelling bruising recurrence and need for additional treatment. More serious risks associated with anesthesia were also explained and understood. Informed consent was granted and witnessed. Procedure: Description of procedure: The patient was placed on the operating table in supine position. Adequate general endotracheal tube anesthesia was obtained. A timeout was accomplished identifying the patient date of plan procedure allergies fire risk and medications given. With all in agreement the procedure continued. Patient received Zithromax for prophylaxis. He was positioned into a semirecumbent position. His nose was packed with 3 cottonoids on each side soaked in 12-hour Afrin. After several minutes the nasal hairs were trimmed and the Afrin packs were removed. The superior septum middle turbinate and posterior septum were all infiltrated with local. This was done bilaterally. A total of 8.5 mL of 2% Xylocaine with 1-100,000 epinephrine was utilized. Then the Afrin packs were reapplied to the nose. Patient was prepped and draped in usual fashion. The Afrin packs were once again removed from the nose. Inspection with the 0 degree endoscope was accomplished after outfracturing the inferior turbinates with a [place] elevator and also loosening the middle turbinate superior attachment. No parts of the turbinates were removed. There was no good access to this area from the anterior nasal and endoscopic approach. Therefore the positioning of the patient was changed. The patient was positioned with the head down 15 degrees to the horizontal. The table had been rotated 90 degrees. A Ethan Delano mouthgag was inserted over the endotracheal tube and tongue ensuring that the upper gingiva was in the guard. This was then opened and suspended from a rolled towel placed on his chest. 2 red rubber catheters were placed 1 on each side of the nose extending to the nasopharynx and elevating the soft palate bilaterally and symmetrically. Then utilizing mirror and endoscopes of various angles the area was examined and the purple vascular tissue had been affected by the local with epinephrine. This shrunk the tissues as was hoped. This left a wrinkled whitish-purple mass on the posterior superior septum bilaterally. This was ablated with the Coblator on t he coagulation mode and then the ablation mode. No active bleeding was encountered from this area. Any bleeding was coming from the injection sites and the manipulations transnasally. Once this was completely ablated and cauterized the area was irrigated with saline repeatedly. No active bleeding was encountered. Manipulation of the posterior turbinates and the area previously treated did not reveal any bleeding. Therefore the red rubber catheters the Ethan Delano mouthgag was released and removed. The mouth was suctioned clean. No bleeding was evident. The patient's head was returned to the upright position. Head drape and tape were removed. Patient was then returned to anesthesia for wake-up and extubation. Patient tolerated the procedure well had an estimated blood loss for the procedure of 10 mL or less and arrived in recovery in stable condition. Were released and removed.
[2022-05-01] MEDS: acetaminophen 325 mg Tablet 650 MG PO (10:25)
--- NOTE | 2022-05-01 14:17 | ANE.PACU2 ---
Inpatient post-anesthesia follow up: Airway intact: Yes Vital signs: Temperature 97.1 F Pulse Rate 66 Respiratory Rate 18 Blood Pressure 135/78 Pulse Oximetry 100 Oxygen Delivery Me thod Room Air Oxygen Flow Rate 6 Fraction of Inspir ed Oxygen Hydration adequate: Yes Nausea and vomiting: No Pain level: 4 Mental status: Baseline
== END 2022-05-01 10:41 | disposition home or self-care (01) ==
PROVIDERS: Anesthesiology; PCP Family Medicine; Visit Provider Otolaryngology
PROC: (CPT 31231; principal; 2022-05-01 08:30)
DX: J34.89 Other specified disorders of nose and nasal sinuses (principal); J45.909 Unspecified asthma, uncomplicated; Z95.0 Presence of cardiac pacemaker; N40.0 Benign prostatic hyperplasia without lower urinary tract symptoms; F32.9 Major depressive disorder, single episode, unspecified; Z87.891 Personal history of nicotine dependence
CPT/HCPCS: 30117; 80048; 85025; 93005; J0456; J1100; J1200; J2370; J2405; J2704; J2710; J3010; J3490; J7030; J7050

== ENCOUNTER → 2022-05-09 09:12 | Outpatient (BNVA) | payer MEDICARE, SELFPAY | PROVIDERS: PCP Family Medicine; Visit Provider Otolaryngology | DX: Z48.810 Encounter for surgical aftercare following surgery on the sense organs (principal); Z87.891 Personal history of nicotine dependence | CPT/HCPCS: 99024 ==

== ENCOUNTER 2022-06-26 13:44 | Outpatient (CLI) | payer MEDICARE, SELFPAY ==
--- NOTE | 2022-06-26 13:54 | CT_ITS ---
WS: [id number] CT CHEST WITHOUT INTRAVENOUS CONTRAST HISTORY: UNSPECIFIED MYCOSIS TECHNIQUE: Contiguous 5 mm axial imaging performed on the thorax. Coronal and sagittal reformats are submitted. All CT scans at [facility] use at least one of these dose optimization techniques: automated exposure control; mA and/or kV adjustment per patient size (includes targeted exams where dose is matched to clinical indication); or iterative reconstruction. CONTRAST: None DLP: 794.15 mGy.cm COMPARISON: 02/25/2022, 06/07/2020 and 06/25/2021. Lungs and central airway: Cavitary mass with a large solid central component in the LEFT upper lobe i s reidentified. The largest subpleural consolidation measures 6.7 x 2.9 cm. There is slight decrease in the amount of cavitation. 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 There is adjacent reactive pleural thickening. Additional pulmonary stranding and fibros is in the LEFT upper lung. No significant change based upon the most recent examination but since 06/07 but is been a slight increase in size of the cavitation and solid component. Additional benign granuloma LEFT upper lobe. 3 mm noncalcified stable nodule RIGHT upper lobe. Pleura: No effusion. Heart and pericardium: Normal size heart. Mediastinum and deanna: No adenopathy identified on this examination. There is mild prominence of the L EFT hilum which is similar to prior studies and may be due to the mildly dilated pulmonary artery. Vessels: Mild atherosclerosis aorta. Mild pulmonary dilatation. Chest wall and lower neck: Dual lead LEFT subclavian pacer. Enlarged substernal goiter. There is a la rge component of the thyroid which extends substernal posterior and just lateral to the trachea. Subs ternal nodule measures 2.7 x 3.6 cm and is been previously described. Mild gynecomastia. Upper abdomen: Prior cholecystectomy. Stable hepatic cysts. Incompletely visualized spleen which may be slightly enlarged. 10.6 cm of the spleen are included. Osseous structures: Degenerative spondylitic changes in the thoracic spine. CT/CT chest wo con [id number] IMPRESSION: 1. 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 Since the most recent study of 02/25/2022 no progress ion. There has been a very slight progression since 06/07/2020. 2. No new mass and no adenopathy. 3. Prior cholecystectomy.
== END 2022-06-26 13:45 | disposition home or self-care (01) ==
LOC: RAD 13:45
PROVIDERS: PCP Family Medicine; Visit Provider Internal Medicine Pulmonary Disease
DX: B49 Unspecified mycosis (principal); Z90.49 Acquired absence of other specified parts of digestive tract
CPT/HCPCS: 71250

== ENCOUNTER → 2022-07-22 13:36 | Outpatient (BNVA) | payer MEDICARE, SELFPAY | PROVIDERS: PCP Family Medicine; Visit Provider Orthopaedic Surgery | DX: M65.341 Trigger finger, right ring finger (principal) | CPT/HCPCS: 20550; 99213 ==

== ENCOUNTER → 2022-08-06 09:25 | Outpatient (BNVA) | payer MEDICARE, SELFPAY | PROVIDERS: PCP Family Medicine; Visit Provider Otolaryngology | DX: R04.0 Epistaxis (principal); Z87.891 Personal history of nicotine dependence | CPT/HCPCS: 99213 ==

== ENCOUNTER → 2022-08-18 13:31 | Outpatient (BNVA) | payer MEDICARE, SELFPAY | PROVIDERS: PCP Family Medicine; Visit Provider Otolaryngology | DX: R04.2 Hemoptysis (principal); Z87.891 Personal history of nicotine dependence | CPT/HCPCS: 99213 ==

== ENCOUNTER → 2022-10-13 11:47 | Outpatient (BNVA) | payer MEDICARE, SELFPAY | PROVIDERS: PCP Family Medicine; Visit Provider Internal Medicine Pulmonary Disease | DX: N18.30 Chronic kidney disease, stage 3 unspecified (principal); R91.8 Other nonspecific abnormal finding of lung field; Z87.891 Personal history of nicotine dependence; Z87.828 Personal history of other (healed) physical injury and trauma; R04.2 Hemoptysis | CPT/HCPCS: 99204 ==

== ENCOUNTER → 2022-11-17 12:18 | Outpatient (BNVA) | payer MEDICARE, SELFPAY | PROVIDERS: PCP Family Medicine; Visit Provider Internal Medicine Pulmonary Disease | DX: R91.8 Other nonspecific abnormal finding of lung field (principal); J45.909 Unspecified asthma, uncomplicated; K21.9 Gastro-esophageal reflux disease without esophagitis; R06.02 Shortness of breath; Z87.891 Personal history of nicotine dependence; Z87.828 Personal history of other (healed) physical injury and trauma; R04.2 Hemoptysis; N18.30 Chronic kidney disease, stage 3 unspecified | CPT/HCPCS: 36415; 82785; 85025; 86003; 99214 ==

== ENCOUNTER 2022-12-10 07:17 | Outpatient (CLI) | payer MEDICARE, SELFPAY ==
--- NOTE | 2022-12-10 07:30 | CT_ITS ---
WS: [id number] CT CHEST TECHNIQUE: Noncontrast CT of the chest with coronal and sagittal reformatted images. CLINICAL INFORMATION: lung screening COMPARISON: CT chest 06/06/22 DLP: 400.[address] scans at [facility] use at least one of these dose optimization techniques: automated e xposure control; mA and/or kV adjustment per patient size (includes targeted exams where dose is matc hed to clinical indication); or iterative reconstruction. FINDINGS: Again seen is the cavitary mass LEFT upper lobe similar to previous. Cavitary mass measures 6.6 x 2.7 cm slightly decreased in size from previous but not significantly changed. Central solid c omponent is not significantly changed. Association traction bronchiectasis. Associated pleural thicke ranulfo. 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 Interstitial changes about the cavitary mass rebekah lar in appearance. Subsegmental atelectasis RIGHT lower lobe. No axillary lymphadenopathy. Adrenal glands are normal. Splenic granulomas. Adjacent reactive pleural thickening. 3 mm noncalcified nodule RIGHT upper lobe. No significant pericardial effusion. No mediastinal or hil ar lymphadenopathy. Aortic calcification. Normal caliber thoracic aorta. Coronary calcification. Stable large RIGHT substernal goiter. Substernal nodule measures 2.8 x 3.6 cm unchanged from previous . Prior cholecystectomy. Incidental hepatic cysts. Hypertrophic changes thoracic spine. Mild splenome kiko. CT/CT chest wo con [id number] IMPRESSION: 1. 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 This measures a few millimeters smaller today but otherwise not significantl y changed. Associated traction bronchiectasis. 2. No mediastinal or hilar lymphadenopathy. 3. Prior cholecystectomy. 4. Stable RIGHT thyroid substernal goiter unchanged.
== END 2022-12-10 07:18 | disposition home or self-care (01) ==
LOC: RAD 07:23
PROVIDERS: PCP Family Medicine; Visit Provider Internal Medicine Pulmonary Disease
DX: J45.909 Unspecified asthma, uncomplicated (principal); R91.8 Other nonspecific abnormal finding of lung field; Z87.891 Personal history of nicotine dependence; Z09 Encounter for follow-up examination after completed treatment for conditions other than malignant neoplasm; J82.83 Eosinophilic asthma
CPT/HCPCS: 71250

== ENCOUNTER → 2023-02-24 10:26 | Outpatient (BNVA) | payer MEDICARE, SELFPAY | PROVIDERS: PCP Family Medicine; Visit Provider Podiatrist Foot & Ankle Surgery | DX: L60.0 Ingrowing nail (principal) | CPT/HCPCS: 11750; 99203 ==